=== PATIENT | female | born 1940 | race Two or more races ===

== ENCOUNTER 2017-05-07 17:45 | Emergency (ER) | payer MEDICARE, OTHER ==
[~2017-05-07] VITALS: Ht 152.4 cm; Wt 54.0 kg
--- NOTE | 2017-05-07 18:00 | NUR ---
AAOX3, C/O WEAK AND DIZZY X [address] LEONARD FOR ABNORMAL BLOOD COUNTS. RR IS EVEN AND UNLABORED WITH NAD NOTED. SKIN IS WARM AND DRY. AWAITING MD FOR EVAL.
[2017-05-07 18:27] LABS: BASOPHILS % (AUTO) 0.7 % (0.0-2.0); EOSINOPHILS # (AUTO) 0.1 /CMM (0.0-0.7); EOSINOPHILS % (AUTO) 1.9 % (0.0-6.0); HEMATOCRIT 28 % (33-45); HEMOGLOBIN 9.3 g/dL (11.5-14.8); LYMPHOCYTES # (AUTO) 2.8 /CMM (0.8-4.8); MEAN CORPUSCULAR HEMOGLOBIN 30 PG (26.0-33.0); MEAN CORPUSCULAR HGB CONC 33 g/dl (31.0-36.0); MEAN CORPUSCULAR VOLUME 92 fL (82-100); MONOCYTES # (AUTO) 0.5 /CMM (0.1-1.30); MONOCYTES % (AUTO) 9.5 % (2.0-12.0); NEUTROPHILS # (AUTO) 2.3 /CMM (1.8-8.9); NEUTROPHILS % (AUTO) 40.9 % (43.0-81.0); PLATELET COUNT (AUTO) 173 /CMM (150-450); RDW COEFFICIENT OF VARIATION 13.1 (11.5-15.0); RED BLOOD CELL COUNT(AUTO) 3.09 MIL/uL (4.0-5.2); WHITE BLOOD COUNT (AUTO) 5.7 K/uL (4.3-11.0)
[2017-05-07] MEDS ORDERED: IV NS 0.9% 1,000 ML BAG IV ONE (18:30)
[2017-05-07 18:37] LABS: CALCIUM, SERUM 8.5 mg/dL (8.5-10.1); CARBON DIOXIDE 22 mmol/L (21-32); CHLORIDE 107 mmol/L (98-107); CREATININE 3.1 mg/dL (0.6-1.3); GLUCOSE 248 mg/dL (74-106); POTASSIUM 5.1 mmol/L (3.5-5.1); SODIUM SERUM 138 mmol/L (136-145); UREA NITROGEN, BLOOD 59 mg/dL (7-18)
[2017-05-07 18:41] LABS: INR 0.97 (0.87-1.13); PROTHROMBIN TIME 10.1 SECS (9.5-12.7)
[2017-05-07 18:43] LABS: ALANINE AMINOTRANSFERASE 19 U/L (12-78); ALBUMIN 2.7 g/dL (3.4-5.0); ALKALINE PHOSPHATASE 59 U/L (46-116); ASPARTATE AMINOTRANSFERASE 18 U/L (15-37); BILIRUBIN,DIRECT 0.1 mg/dL (0.0-0.2); BILIRUBIN,TOTAL 0.2 mg/dL (0.2-1.0); LIPASE 199 U/L (73-393); TOTAL PROTEIN, SERUM 6.6 g/dL (6.4-8.2)
[2017-05-07 18:46] LABS: TROPONIN I 0.023 ng/mL (0.00-0.056)
[2017-05-07 19:04] LABS: APPEARANCE,URINE Cloudy (CLEAR); BILIRUBIN,URINE Negative (NEGATIVE); BLOOD, URINE Trace-intact Ery/uL (NEGATIVE); COLOR,URINE Yellow (YELLOW); KETONES,URINE Negative (NEGATIVE); LEUKOCYTE ESTERASE ,URINE Small (NEGATIVE); NITRITE, URINE Positive (NEGATIVE); PH,URINE 5.5 (5.0-8.0); PROTEIN,URINE Trace mg/dl (NEGATIVE); UGLUCOSE Negative (NEGATIVE); UROBILINOGEN,URINE 0.2 EU/dL (0.2)
[2017-05-07 19:21] LABS: BACTERIA,URINE 3+ /HPF (None Seen); SQUAMOUS EPITHELIAL CELL,UR Few /HPF (None Seen)
[2017-05-07] MEDS ORDERED: CEFTRIAXONE 1 G VIAL ONE (19:29)
[2017-05-07] MEDS ORDERED: CEFTRIAXONE 1 G in IV D5W 50 ML IV ONE (19:30)
--- NOTE | 2017-05-07 20:00 | NUR ---
IV removed. Catheter intact and site benign. Pressure and 4x4 applied to site. No bleeding noted. Patient discharged to home in stable condition. Written and verbal after care instructions given. Patient verbalizes understanding of instruction. Patient was able to walk with assistance, no further complaints.
[2017-05-07 20:01] VITALS: BP 111/53
== END 2017-05-07 20:01 | disposition home or self-care (01) ==
LOC: ER 17:48
DX: N30.00 Acute cystitis without hematuria (principal); R53.1 Weakness; N28.9 Disorder of kidney and ureter, unspecified; I10 Essential (primary) hypertension; R79.1 Abnormal coagulation profile
CPT/HCPCS: 36415; 71010; 80048; 80076; 81001; 83690; 84484; 85025; 85730; 87077; 87086; 87186; 96361; 96365; 99285; A4606; J0696; J7030; J7060; 81000-TC; Z7610

== ENCOUNTER 2017-05-12 07:11 | Inpatient (IN) | payer MEDICARE, MEDICAID ==
[2017-05-12] MEDS ORDERED: IV NS 0.9% 1,000 ML BAG IV ONE (07:30)
[2017-05-12] MEDS ORDERED: LEVO100T9 PO (09:16)
[2017-05-12] MEDS ORDERED: NIFE60TA69 PO (09:16)
[2017-05-12] MEDS ORDERED: VALS160T2 PO (09:16)
[2017-05-12] MEDS ORDERED: ASPI-991 PO (09:16)
[2017-05-12] MEDS ORDERED: CALC500T51 PO (09:16)
[2017-05-12] MEDS ORDERED: GLIM4TAB2 PO (09:16)
[2017-05-12] MEDS ORDERED: POTA10CA43 PO (09:16)
[2017-05-12] MEDS ORDERED: HYDR50TA3 PO (09:16)
[2017-05-12] MEDS ORDERED: NATE120T6 PO (09:16)
[2017-05-12] MEDS ORDERED: INSU100V7 SQ (09:16)
[2017-05-12] MEDS ORDERED: PROP20TA7 PO (09:16)
[2017-05-12] MEDS ORDERED: CEFTRIAXONE 1GM BAG (ER ONLY) 50 ML IV ONE ×2 (09:28→09:30)
[2017-05-12] MEDS ORDERED: POTA8TAB3 PO (09:37)
[2017-05-12] MEDS ORDERED: ONDANSETRON HCL/PF 4 MG/2 ML VIAL IV PRN (11:30)
[2017-05-12] MEDS ORDERED: CLONIDINE HCL 0.1 MG TABLET PO PRN (11:30)
[2017-05-12] MEDS ORDERED: ACETAMINOPHEN 325 MG TABLET PO PRN (11:30)
[2017-05-12] MEDS ORDERED: DEXTROSE 50%-WATER 50 ML DISP.SYRIN IV PRN ×2 (11:30→18:00)
[2017-05-12] MEDS: LEVOTHYROXINE SODIUM 100 MCG TABLET PO SCH (12:26)
[2017-05-12] MEDS: ASPIRIN EC 81 MG TABLET.DR PO SCH (12:26)
[2017-05-12] MEDS: NIFEdipine XL 60 MG TAB PO SCH (12:26)
[2017-05-12] MEDS: ENOXAPARIN SODIUM 30 MG/0.3 ML DISP.SYRIN SQ SCH (12:27)
[2017-05-12] MEDS: PROPRANOLOL HCL 10 MG TABLET PO SCH ×2 (12:29→17:00)
[2017-05-12] MEDS: CALCIUM CARBONATE (1250) 500 MG TABLET PO SCH ×2 (12:29→17:50)
[2017-05-12] MEDS: NATEGLINIDE 60 MG TABLET PO SCH ×3 (12:30→17:50)
[2017-05-12] MEDS: IV D5/ 0.9% NACL 1,000 ML IV PRN (12:32)
[2017-05-12] MEDS: BLOOD SUGAR DIAGNOSTIC 1 EACH STRIP IN SCH ×4 (12:43→21:07)
[2017-05-12] MEDS: INSULIN REGULAR, HUMAN 100 UNIT/ML 3 ML VIAL SQ PRN ×2 (13:55→15:09)
[2017-05-12] MEDS ORDERED: INSULIN REGULAR, HUMAN 100 UNIT/ML 3 ML VIAL SQ PRN (18:00)
[2017-05-12] MEDS: INSULIN DETEMIR 100 UNIT/ML CARTRIDGE SQ SCH (21:08)
[2017-05-13] MEDS: IV D5/ 0.9% NACL 1,000 ML IV PRN (04:24)
[2017-05-13] MEDS: BLOOD SUGAR DIAGNOSTIC 1 EACH STRIP IN SCH ×4 (06:36→21:32)
[2017-05-13] MEDS: INSULIN REGULAR, HUMAN 100 UNIT/ML 3 ML VIAL SQ PRN ×2 (06:40→12:33)
[2017-05-13] MEDS ORDERED: DEXTROSE 50%-WATER 50 ML DISP.SYRIN IV PRN (07:30)
[2017-05-13] MEDS: CEFTRIAXONE 1 G in IV D5W 50 ML IV SCH (08:18)
[2017-05-13] MEDS: CALCIUM CARBONATE (1250) 500 MG TABLET PO SCH ×2 (08:19→17:15)
[2017-05-13] MEDS: ENOXAPARIN SODIUM 30 MG/0.3 ML DISP.SYRIN SQ SCH (08:19)
[2017-05-13] MEDS: LEVOTHYROXINE SODIUM 100 MCG TABLET PO SCH (08:20)
[2017-05-13] MEDS: NATEGLINIDE 60 MG TABLET PO SCH ×3 (08:20→17:16)
[2017-05-13] MEDS: ASPIRIN EC 81 MG TABLET.DR PO SCH (08:20)
[2017-05-13] MEDS: PROPRANOLOL HCL 10 MG TABLET PO SCH ×3 (08:26→17:15)
[2017-05-13] MEDS: VALSARTAN 80 MG TABLET PO SCH ×2 (08:26→17:13)
[2017-05-13] MEDS: NIFEdipine XL 60 MG TAB PO SCH (08:27)
[2017-05-13] MEDS: PANTOPRAZOLE 40 MG TABLET.DR PO SCH (08:28)
[2017-05-13] MEDS: INSULIN DETEMIR 100 UNIT/ML CARTRIDGE SQ SCH (21:39)
[2017-05-14] MEDS: BLOOD SUGAR DIAGNOSTIC 1 EACH STRIP IN SCH ×4 (06:29→21:35)
[2017-05-14] MEDS: INSULIN REGULAR, HUMAN 100 UNIT/ML 3 ML VIAL SQ PRN ×4 (06:32→21:41)
[2017-05-14] MEDS: PANTOPRAZOLE 40 MG TABLET.DR PO SCH (06:34)
[2017-05-14] MEDS: NIFEdipine XL 60 MG TAB PO SCH (09:18)
[2017-05-14] MEDS: ASPIRIN EC 81 MG TABLET.DR PO SCH (09:18)
[2017-05-14] MEDS: LEVOTHYROXINE SODIUM 100 MCG TABLET PO SCH (09:18)
[2017-05-14] MEDS: CALCIUM CARBONATE (1250) 500 MG TABLET PO SCH ×2 (09:18→17:55)
[2017-05-14] MEDS: VALSARTAN 80 MG TABLET PO SCH ×2 (09:21→17:00)
[2017-05-14] MEDS: PROPRANOLOL HCL 10 MG TABLET PO SCH ×3 (09:24→18:01)
[2017-05-14] MEDS: ENOXAPARIN SODIUM 30 MG/0.3 ML DISP.SYRIN SQ SCH (09:26)
[2017-05-14] MEDS: CEFTRIAXONE 1 G in IV D5W 50 ML IV SCH (09:37)
[2017-05-14] MEDS: NATEGLINIDE 60 MG TABLET PO SCH ×3 (09:37→17:56)
[2017-05-14] MEDS: INSULIN DETEMIR 100 UNIT/ML CARTRIDGE SQ SCH (21:36)
[2017-05-15] MEDS: BLOOD SUGAR DIAGNOSTIC 1 EACH STRIP IN SCH ×3 (05:48→16:58)
[2017-05-15] MEDS: INSULIN REGULAR, HUMAN 100 UNIT/ML 3 ML VIAL SQ PRN ×3 (05:51→17:07)
[2017-05-15] MEDS: ENOXAPARIN SODIUM 30 MG/0.3 ML DISP.SYRIN SQ SCH (08:13)
[2017-05-15] MEDS: LEVOTHYROXINE SODIUM 100 MCG TABLET PO SCH (08:14)
[2017-05-15] MEDS: CALCIUM CARBONATE (1250) 500 MG TABLET PO SCH ×2 (08:14→17:02)
[2017-05-15] MEDS: PANTOPRAZOLE 40 MG TABLET.DR PO SCH (08:14)
[2017-05-15] MEDS: ASPIRIN EC 81 MG TABLET.DR PO SCH (08:14)
[2017-05-15] MEDS: NATEGLINIDE 60 MG TABLET PO SCH ×3 (08:15→17:04)
[2017-05-15] MEDS: NIFEdipine XL 60 MG TAB PO SCH (08:20)
[2017-05-15] MEDS: VALSARTAN 80 MG TABLET PO SCH ×2 (08:20→17:00)
[2017-05-15] MEDS: PROPRANOLOL HCL 10 MG TABLET PO SCH ×3 (08:21→17:00)
[2017-05-15] MEDS: CEFTRIAXONE 1 G in IV D5W 50 ML IV SCH (11:55)
== END 2017-05-15 20:20 | DRG 638 ==
DX: E11.649 Type 2 diabetes mellitus with hypoglycemia without coma (principal); N39.0 Urinary tract infection, site not specified; N17.0 Acute kidney failure with tubular necrosis; F03.90 Unspecified dementia, unspecified severity, without behavioral disturbance, psychotic disturbance, mood disturbance, and anxiety; E11.22 Type 2 diabetes mellitus with diabetic chronic kidney disease; E11.65 Type 2 diabetes mellitus with hyperglycemia; I12.9 Hypertensive chronic kidney disease with stage 1 through stage 4 chronic kidney disease, or unspecified chronic kidney disease; Z79.4 Long term (current) use of insulin; Z79.84 Long term (current) use of oral hypoglycemic drugs; Z79.82 Long term (current) use of aspirin; Y92.129 Unspecified place in nursing home as the place of occurrence of the external cause; T38.3X5A Adverse effect of insulin and oral hypoglycemic [antidiabetic] drugs, initial encounter; N18.3 Chronic kidney disease, stage 3 (moderate); Z79.899 Other long term (current) drug therapy

== ENCOUNTER 2017-06-04 22:25 | Inpatient (IN) | payer MEDICARE, MEDICAID ==
[~2017-06-04] VITALS: Ht 160 cm; Wt 54.0 kg
[~2017-06-04 22:25] MED LIST: ASPI-991 PO; CALC500T51 PO; GLIM4TAB2 PO; HYDR50TA3 PO; INSU100V7 SQ; LEVO100T9 PO; NATE120T6 PO; NIFE60TA69 PO; POTA8TAB3 PO; PROP20TA7 PO; VALS160T2 PO
--- NOTE | 2017-06-04 22:37 | NUR ---
ADRIENNE ESQUIVEL FROM [facility]; LOW BG; 56, NURSES ADMIN 1MG GLUCAGON PER EMS, PT IS BACK TO BASELINE BS ON THE FIELD 88. PT AO TO NAME NOTED WITH CONFUSION. HX DEMENTIA. RR EVEN AND UNLABORED. NO SOB NOTED. NAD NOTED. PT GOWNED AND PLACED ON MONITOR WAITING FOR MD COTTRELL.
--- NOTE | 2017-06-04 23:02 | NUR ---
URINE COLLECTED. CALLED LAB FOR BRICK YARD HAND.
[2017-06-04 23:05] LABS: BASOPHILS % (AUTO) 0.4 % (0.0-2.0); EOSINOPHILS # (AUTO) 0.1 /CMM (0.0-0.7); EOSINOPHILS % (AUTO) 0.6 % (0.0-6.0); HEMATOCRIT 37 % (33-45); HEMOGLOBIN 11.9 g/dL (11.5-14.8); LYMPHOCYTES # (AUTO) 2.2 /CMM (0.8-4.8); LYMPHOCYTES % (AUTO) 21.6 % (20.0-44.0); MEAN CORPUSCULAR HEMOGLOBIN 29 PG (26.0-33.0); MEAN CORPUSCULAR HGB CONC 32 g/dl (31.0-36.0); MEAN CORPUSCULAR VOLUME 91 fL (82-100); MONOCYTES # (AUTO) 0.7 /CMM (0.1-1.30); MONOCYTES % (AUTO) 6.4 % (2.0-12.0); NEUTROPHILS # (AUTO) 7.2 /CMM (1.8-8.9); PLATELET COUNT (AUTO) 358 /CMM (150-450); RDW COEFFICIENT OF VARIATION 13.5 (11.5-15.0); RED BLOOD CELL COUNT(AUTO) 4.06 MIL/uL (4.0-5.2); WHITE BLOOD COUNT (AUTO) 10.2 K/uL (4.3-11.0)
[2017-06-04 23:17] LABS: CALCIUM, SERUM 9.7 mg/dL (8.5-10.1); CARBON DIOXIDE 23 mmol/L (21-32); CHLORIDE 102 mmol/L (98-107); CREATININE 2.7 mg/dL (0.6-1.3); GLUCOSE 151 mg/dL (74-106); POTASSIUM 5.2 mmol/L (3.5-5.1); SODIUM SERUM 135 mmol/L (136-145); UREA NITROGEN, BLOOD 53 mg/dL (7-18)
[2017-06-04 23:20] LABS: INR 0.9 (0.87-1.13); PROTHROMBIN TIME 9.4 SECS (9.5-12.7)
[2017-06-04 23:25] LABS: ALANINE AMINOTRANSFERASE 23 U/L (12-78); ALBUMIN 3.3 g/dL (3.4-5.0); ALKALINE PHOSPHATASE 93 U/L (46-116); ASPARTATE AMINOTRANSFERASE 16 U/L (15-37); BILIRUBIN,DIRECT 0.1 mg/dL (0.0-0.2); BILIRUBIN,TOTAL 0.3 mg/dL (0.2-1.0); TOTAL PROTEIN, SERUM 9.5 g/dL (6.4-8.2); TROPONIN I < 0.017 ng/mL (0.00-0.056)
--- NOTE | 2017-06-04 23:38 | NUR ---
Sherif kimball in [facility] - 06/04/17 at 2341 by SHARYN PT TO RADIOLOGY FOR CT.
[2017-06-04 23:47] LABS: APPEARANCE,URINE CLEAR (CLEAR); BILIRUBIN,URINE NEGATIVE (NEGATIVE); BLOOD, URINE NEGATIVE Ery/uL (NEGATIVE); COLOR,URINE YELLOW (YELLOW); KETONES,URINE NEGATIVE (NEGATIVE); LEUKOCYTE ESTERASE ,URINE NEGATIVE (NEGATIVE); NITRITE, URINE NEGATIVE (NEGATIVE); PROTEIN,URINE TRACE mg/dl (NEGATIVE); UGLUCOSE NEGATIVE (NEGATIVE); UROBILINOGEN,URINE 0.2 EU/dL (0.2)
[2017-06-04 23:54] LABS: BACTERIA,URINE None seen /HPF (None Seen); RBC,URINE NONE SEEN /HPF (0-2); SQUAMOUS EPITHELIAL CELL,UR Few /HPF (None Seen)
[2017-06-05] VITALS (7 sets, daily range): BP systolic 106–142; BP diastolic 52–91
[2017-06-05] MEDS ORDERED: SODIUM POLYSTYRENE SULFONATE 15 G/60 ML BOTTLE PO ONE
--- NOTE | 2017-06-05 00:09 | NUR ---
DR. HORACIO VAN
[2017-06-05] MEDS ORDERED: SODIUM POLYSTYRENE SULFONATE 15 G/60 ML BOTTLE ONE (00:14)
[2017-06-05] MEDS ORDERED: PANT40TA4 PO (00:16)
[2017-06-05] MEDS ORDERED: CLON0.1T PO (00:16)
--- NOTE | 2017-06-05 00:40 | NUR ---
DR. ROCK SPOKE TO DR. LEONARD REGARDING ADMISSION.
--- NOTE | 2017-06-05 00:42 | NUR ---
PT BP 98/[address] ROCK MADE AWARE. VERBAL ORDERS TO GIVE IV NS 500CC BOLUS NOW. PT MEDICATED
--- NOTE | 2017-06-05 00:55 | NUR ---
PT ASSIGNED 324-2
[2017-06-05] MEDS ORDERED: IV NS 0.9% 500 ML BAG IV ONE (01:00)
--- NOTE | 2017-06-05 01:00 | NUR ---
REPORT GIVEN TO AMADOR JI FOR TELE BED 324-2
--- NOTE | 2017-06-05 01:15 | NUR ---
PT TRANSFERED TO [facility] BED 324-2 VIA [facility] PER ACLS PROTOCOL.
--- NOTE | 2017-06-05 01:20 | NUR ---
RN NOTES: -0100 VERBAL ENDORSEMENT RECEIVED FROM JOAQUÍN(ER/RN),PATIENT WAS BROUGHT TO ER FROM [facility] DUE TO LOW BLOOD SUGAR=56 AND ALTERED LEVEL OF CONSCIOUSNESS,SHE RECEIVED GLUCAGON FROM SNF,RBS IN SJ=333,K-5.2, KAYEXALATE GIVEN AND BOLUS OF N/S 500CC,CXR-NEGATIVE,MRSA SWAB DONE,URINE C/S PENDING,EKG-SR RBBB.ALBARRAN CATH WAS INSERTED F16/10ML,PATIENT TEMP-95,WARM COMPRESS DONE FROM ER. -0120 NEW ADMISSION FROM ER, ACCOMPANIED BY RN, ON WIDE AREA NETWORK SYSTEMS ADMINISTRATOR,STARTED ON TELE MONITORING-SR 1ST DEGREE AV BLOCK RATE=75,ALERT AND COHERENT X1 WITH PERIODS OF FORGETFULNESS AND CONFUSION,ALBARRAN CATH ON SITE DRAINING INTO 100CC LEVEL OF YELLOWISH COLORED URINE,IV CANNULA RIGHT HAND G#24,RIGHT AC G#20,KEPT WARMTH, ADDITIONAL WARM BLANKET PROVIDED, TEMP-97.5, PATIENT IS GIBRALTARIAN SPEAKING WITH LITTLE TURKMEN, SHE LOOKS CONFUSE,ORIENT TO UNIT AND STAFF,FALL, SAFETY AND ASPIRATION PRECAUTION OBSERVED,BED LOW AND LOCKED, SIDE RAILSX2 UP, CALL LIGHT WITHIN EASY REACH, FOR BLOOD SUGAR MONITOR.BODY ASSESSMENT DONE,EDEMA ON BLE(+),KEPT MONITORED FOR SIGN OF HYPER/HYPOGLYCEMIA.ON CLOSE WATCH.
[2017-06-05] MEDS ORDERED: ACETAMINOPHEN 325 MG TABLET PO PRN ×2 (01:30→10:00)
[2017-06-05] MEDS ORDERED: IV D5/ 0.9% NACL 1,000 ML IV SCH (01:30)
[2017-06-05] MEDS ORDERED: ONDANSETRON HCL/PF 4 MG/2 ML VIAL IV PRN (01:30)
--- NOTE | 2017-06-05 02:30 | NUR ---
RN NOTES: -IVF OF D5NS AT 100CC/HR STARTED,IV LINE RIGHT AC G#20 INTACT AND PATENT. -PATIENT KEPT WARM,NO SHEIVERING, BLOOD SUGAR FNXWN=549,WILL CONTINUE TO MONITOR FOR SIGN OF HYPER AND HYPOGLYCEMIA.
--- NOTE | 2017-06-05 04:10 | NUR ---
RN NOTES: PATIENT ABLE TO AMBULATE WITH UTILITY PLANT OPERATIVE ASSISTANCE GOING TO THE BATHROOM,BLOOD SUGAR CHECKED-215, IVF CONTINUED,LATEST V/S BP-128/52 WA-78 T-97.8,ABLE TO MAINTAIN TEMPERATURE WITH IN NORMAL RANGE.CALL LIGHT WITH IN EASY REACH.
[2017-06-05] MEDS ORDERED: DEXTROSE 50%-WATER 50 ML DISP.SYRIN IV PRN (06:00)
--- NOTE | 2017-06-05 06:40 | NUR ---
RN NOTES: AWAKE,NO PAIN OR DISCOMFORT, ABLE TO VERBALIZE NEED, SR RATE-RR WITH 1ST DEGREE AV BLOCK, KEPT ON CLOSE WATCH, FALL AND SAFETY PRECAUTION OBSERVE,CALL LIGHT WITHIN EASY REACH.ENDORSED FOR CONTINUITY OF CARE.
--- NOTE | 2017-06-05 07:25 | NUR ---
TELE-RN PT IS IN BED, AWAKE AND ALERT. PT ON RA, RESPIRATIONS ARE EVEN AND UNLABORED. IV ON RIGHT HAND AND RAC INTACT AND PATENT, RAC RUNNING D5NS AT 70ML/HR. SAFETY MEASURES ARE IN PLACE, CALL LIGHT IS IN REACH. WILL CONTINUE TO MONITOR.
[2017-06-05 07:28] LABS: BASOPHILS % (AUTO) 0.3 % (0.0-2.0); EOSINOPHILS % (AUTO) 0.4 % (0.0-6.0); HEMATOCRIT 30 % (33-45); HEMOGLOBIN 9.9 g/dL (11.5-14.8); LYMPHOCYTES # (AUTO) 2.5 /CMM (0.8-4.8); LYMPHOCYTES % (AUTO) 27.2 % (20.0-44.0); MEAN CORPUSCULAR HEMOGLOBIN 31 PG (26.0-33.0); MEAN CORPUSCULAR HGB CONC 33 g/dl (31.0-36.0); MEAN CORPUSCULAR VOLUME 92 fL (82-100); MONOCYTES # (AUTO) 0.8 /CMM (0.1-1.30); MONOCYTES % (AUTO) 8.3 % (2.0-12.0); NEUTROPHILS # (AUTO) 5.8 /CMM (1.8-8.9); NEUTROPHILS % (AUTO) 63.8 % (43.0-81.0); PLATELET COUNT (AUTO) 305 /CMM (150-450); RDW COEFFICIENT OF VARIATION 13.6 (11.5-15.0); RED BLOOD CELL COUNT(AUTO) 3.23 MIL/uL (4.0-5.2); WHITE BLOOD COUNT (AUTO) 9.1 K/uL (4.3-11.0)
[2017-06-05] MEDS: BLOOD SUGAR DIAGNOSTIC 1 EACH STRIP IN SCH ×4 (07:30→22:38)
[2017-06-05 07:53] LABS: CALCIUM, SERUM 8.7 mg/dL (8.5-10.1); CARBON DIOXIDE 22 mmol/L (21-32); CHLORIDE 104 mmol/L (98-107); CREATININE 2.5 mg/dL (0.6-1.3); GLUCOSE 207 mg/dL (74-106); MAGNESIUM 1.9 mg/dL (1.8-2.4); POTASSIUM 4.3 mmol/L (3.5-5.1); SODIUM SERUM 138 mmol/L (136-145); UREA NITROGEN, BLOOD 50 mg/dL (7-18)
[2017-06-05] MEDS ORDERED: MAGN400O6 PO (08:36)
[2017-06-05] MEDS ORDERED: ACET-868 PO (08:36)
[2017-06-05] MEDS ORDERED: CHOL100044 PO (08:36)
[2017-06-05] MEDS ORDERED: LEVO50TA8 PO (08:36)
[2017-06-05] MEDS ORDERED: BLOO-668 IN (08:36)
[2017-06-05] MEDS ORDERED: DOCU-25 PO (08:36)
[2017-06-05] MEDS ORDERED: NA P133E RC (08:36)
[2017-06-05] MEDS ORDERED: PRAV20TA PO (08:36)
[2017-06-05] MEDS ORDERED: SITA50TA PO (08:36)
[2017-06-05] MEDS ORDERED: INSU100I4 SQ ×2 (08:36)
[2017-06-05] MEDS ORDERED: BISA10SU8 RC (08:36)
--- NOTE | 2017-06-05 09:56 | NUR ---
WOUND CARE CONSULT: PT PRESENTS WITH INTACT SKIN AND SOME STAINING OF SACRAL/BUTTOCK SKIN. PT ABLE TO TURN AND REPOSITION IN BED. ALBARRAN CATH IN USE. DISCUSSED SKIN PROTECTION WITH NURSING STAFF. PT AMBULATORY WITH NURSING STAFF PER NURSE. WILL SEE PRN. KENYON IN AGREEMENT WITH PLAN OF CARE.
[2017-06-05] MEDS ORDERED: CLONIDINE HCL 0.1 MG TABLET PO PRN (10:00)
[2017-06-05] MEDS: PANTOPRAZOLE 40 MG TABLET.DR PO SCH (10:44)
[2017-06-05] MEDS: ASPIRIN EC 81 MG TABLET.DR PO SCH (10:44)
[2017-06-05] MEDS: NIFEdipine XL 60 MG TAB PO SCH (10:45)
[2017-06-05] MEDS: VALSARTAN 80 MG TABLET PO SCH ×2 (10:45→22:38)
[2017-06-05] MEDS: INSULIN REGULAR, HUMAN 100 UNIT/ML 3 ML VIAL SQ PRN ×3 (11:50→22:40)
[2017-06-05] MEDS: PROPRANOLOL HCL 10 MG TABLET PO SCH ×2 (13:00→17:10)
--- NOTE | 2017-06-05 18:36 | NUR ---
RN NOTES PT IS IN BED, RESTING COMFORTABLY. PT ON RA, RESPIRATIONS ARE EVEN AND UNLABORED. IV ON R HAND INTACT, RAC INTACT, RUNNING D5NS @70ML/HR. ALBARRAN CATHETER INTACT, OUTPUT 800ML. PT WAS ABLE TO AMBULATE TO BR WITH ASSISTANCE, BM X1. ALL MEDS WERE GIVEN ORDERED. SKIN CARE WAS PROVIDED. SAFETY MEASURES ARE IN PLACE, CALL LIGHT IS IN REACH. WILL ENDORSE TO MACHINE LEARNING INTERN RN FOR CONTINUITY OF CARE.
--- NOTE | 2017-06-05 19:30 | NUR ---
MS/RN RECEIVE PATIENT AWAKE, ALERT, ORIENTED TO SELF, NO C/O, NO DISTRESS NOTED, CALL LIGHT IN REACH. FALL PRECAUTION. WILL MONITOR.
[2017-06-05] MEDS ORDERED: INSULIN DETEMIR 100 UNIT/ML CARTRIDGE SQ SCH (22:00)
--- NOTE | 2017-06-05 22:47 | NUR ---
MS/RN BLOOD SUGAR 151, REGULAR INSULIN GIVEN PER SLIDING SCALE, LANTUS 15 UNITS WAS ALSO GIVEN ORDERED. SNACK GIVEN. WILL MONITOR.
--- NOTE | 2017-06-06 02:12 | NUR ---
MS/RN PATIENT IS SLEEPING AT THIS TIME, AROUSABLE, APPEAR COMFORTABLE, NO SIGNS OF DISTRESS NOTED, CALL LIGHT IN REACH. WILL CONTINUE TO MONITOR.
--- NOTE | 2017-06-06 06:40 | NUR ---
MS/RN BLOOD SUGAR BY BEDSIDE ACCU CHECK 79, APPLE JUICE GIVEN. NO CHANGE IN CONDITION. ALL NEEDS ATTENDED. WILL CONTINUE TO MONITOR.
--- NOTE | 2017-06-06 07:33 | NUR ---
MS RN OPENING NOTE RECEIVED REPORT ON THE PATIENT. PATIENT IS RESTING IN BED WITH THE EYES CLOSED. RESPONSIVE TO NAME, EASILY AROUSABLE. A/0 X3, PERUVIAN SPEAKING. BED IS LOCKED IN THE LOWEST POSITION, SIDE RAILS UP X 3, BED ALARM ON, PATIENT IN HIGH CROW'S POSITION. DENIES PAIN/ISCOMFORT AT THIS TIME. ALL NEEDS ATTENDED TO. CALL LIGHT WITHIN REACH. SN TOLD THE PATIENT TO CALL FOR HELP WHEN NEEDED. PATIENT VERBALIZED UNDERSTANDING. WILL CONTINUE TO MONITOR.
[2017-06-06] MEDS: BLOOD SUGAR DIAGNOSTIC 1 EACH STRIP IN SCH ×3 (07:34→17:34)
[2017-06-06 08:00] VITALS: BP 133/74
[2017-06-06] MEDS: PANTOPRAZOLE 40 MG TABLET.DR PO SCH (08:22)
[2017-06-06] MEDS: ASPIRIN EC 81 MG TABLET.DR PO SCH (08:22)
[2017-06-06] MEDS: NIFEdipine XL 60 MG TAB PO SCH (08:23)
[2017-06-06] MEDS: VALSARTAN 80 MG TABLET PO SCH (08:24)
[2017-06-06] MEDS: PROPRANOLOL HCL 10 MG TABLET PO SCH ×3 (08:26→17:33)
[2017-06-06] MEDS: INSULIN REGULAR, HUMAN 100 UNIT/ML 3 ML VIAL SQ PRN ×2 (12:56→17:41)
[2017-06-06 16:00] VITALS: BP 146/66
[2017-06-06 17:33] VITALS: BP 146/66
--- NOTE | 2017-06-06 18:00 | NUR ---
MS RN NOTE REMOVED ALBARRAN CATETHER. PATIENT TOLERATED THE PROCEDURE WELL. EDUCATED THE PATIENT TO CALL THE NURSE ONCE HAS AN URGE TO URINATE. WILL CONTINUE TO MONITOR.
--- NOTE | 2017-06-06 18:53 | NUR ---
MS RN NOTE PATIENT URINATED. DENIES BURNING SECTION/HESITANCY. CLEAR, STRAW COLOR URINE OBSERVED. PATIENT ASKED TO BE PLACED IN A DIAPER.
--- NOTE | 2017-06-06 18:59 | NUR ---
MS RN CLOSING NOTE PATIENT IS RESTING IN BED COMFORTABLY. BED IS LOCKED IN THE LOWEST POSITION, SIDE RAILS UP X 3, BED ALARM ON. CALL LIGHT WITHIN REACH. ALL NEEDS ARE ATTENDED TO ALBARRAN CATETHER REMOVED. PASSED VOID TRIAL. DENIES PAIN/DISCOMFORT. DISCHARGE EDUCATION PROVIDE. DISCHARGE PAPERWORK IS READY. WILL INDORSE TO THE TRANSMISSION ENGINEER FOR KEY.
--- NOTE | 2017-06-06 19:10 | NUR ---
MS RN NOTE SPOKE WITH THE SON RAFIQ. STATED WILL BE HERE IN 30-40 MINUTES TO TRADE MARK EXAMINER THE PATIENT
--- NOTE | 2017-06-06 19:57 | NUR ---
RN NOTES PATIENT IS ALERT AND ORIENTED X2, NO SOB, NO RESPIRATORY DISTRESS,TOLERATING ROOM AIR, FOR DISCHARGE HOME, PICKED UP BY SON RAMSES, EDUCATED ON S/S OF HYPOGLYCEMIA AND MEDICATION COUNSELING AND HOW TO PERFORM ACCUCHECK AND BLOOD PRESSURE, SON SIGNED DISCHARGE PAPERS, REMOVED IV LINE, NO BLEEDING, SECURED WITH DRESSING. BELONGINGS GIVEN TO SON, DISCHARGED VIA PRIVATE CAR. V/S 121/55 HR 77 R 20 AND SPO2 AT ROOM AIR 98%, NO COMPLAIN OF PAIN.
== END 2017-06-06 19:50 | disposition home or self-care (01) | DRG 639 ==
LOC: ER 22:28 → TELE 06-05 00:59 → MED 06-05 10:12
PROVIDERS: ADMIT Legal Medicine; ATTEND Legal Medicine
DX: E11.649 Type 2 diabetes mellitus with hypoglycemia without coma (principal); E86.0 Dehydration; E11.22 Type 2 diabetes mellitus with diabetic chronic kidney disease; F03.90 Unspecified dementia, unspecified severity, without behavioral disturbance, psychotic disturbance, mood disturbance, and anxiety; N18.3 Chronic kidney disease, stage 3 (moderate); I12.9 Hypertensive chronic kidney disease with stage 1 through stage 4 chronic kidney disease, or unspecified chronic kidney disease; E03.9 Hypothyroidism, unspecified; K21.9 Gastro-esophageal reflux disease without esophagitis; Z79.899 Other long term (current) drug therapy; Z79.84 Long term (current) use of oral hypoglycemic drugs; Z79.82 Long term (current) use of aspirin
CPT/HCPCS: 36415; 71010-TC; 80048-TC; 80076-TC; 81000-TC; 82962-TC; 83605-TC; 83735-TC; 84484-TC; 85025-TC; 85730-TC; 87040-TC; 87081-TC; 87086-TC; 87186-TC; A4606; J1815; J7040; J7042; Z7610

== ENCOUNTER 2017-07-13 07:04 | Inpatient (IN) | payer MEDICARE, MEDICAID ==
[~2017-07-13] VITALS: Ht 152.4 cm; Wt 59.4 kg
[~2017-07-13 07:04] MED LIST changes: +ACET-868 PO; +BISA10SU8 RC; +BLOO-668 IN; -CALC500T51 PO; +CHOL100044 PO; +CLON0.1T PO; +DOCU-25 PO; -GLIM4TAB2 PO; -HYDR50TA3 PO; +INSU100I4 SQ; -LEVO100T9 PO; +LEVO50TA8 PO; +MAGN400O6 PO; +NA P133E RC; -NATE120T6 PO; +PANT40TA4 PO; -POTA8TAB3 PO; +PRAV20TA PO; +SITA50TA PO
[2017-07-13] MEDS ORDERED: DEXTROSE 50%-WATER 50 ML DISP.SYRIN ONE (07:17)
--- NOTE | 2017-07-13 07:29 | NUR ---
CASING BUILDER AT BEDSIDE
[2017-07-13] MEDS ORDERED: IV D5/0.45 NACL 1,000 ML IV ONE (07:30)
[2017-07-13 07:34] LABS: BASOPHILS # (AUTO) 0.1 /CMM (0.0-0.2); BASOPHILS % (AUTO) 0.6 % (0.0-2.0); EOSINOPHILS # (AUTO) 0.3 /CMM (0.0-0.7); EOSINOPHILS % (AUTO) 3.9 % (0.0-6.0); HEMATOCRIT 32 % (33-45); HEMOGLOBIN 10.6 g/dL (11.5-14.8); LYMPHOCYTES # (AUTO) 3.2 /CMM (0.8-4.8); LYMPHOCYTES % (AUTO) 40.4 % (20.0-44.0); MEAN CORPUSCULAR HEMOGLOBIN 30 PG (26.0-33.0); MEAN CORPUSCULAR HGB CONC 33 g/dl (31.0-36.0); MEAN CORPUSCULAR VOLUME 91 fL (82-100); MONOCYTES # (AUTO) 0.8 /CMM (0.1-1.30); MONOCYTES % (AUTO) 10.1 % (2.0-12.0); NEUTROPHILS # (AUTO) 3.6 /CMM (1.8-8.9); PLATELET COUNT (AUTO) 246 /CMM (150-450); RDW COEFFICIENT OF VARIATION 15.8 (11.5-15.0); RED BLOOD CELL COUNT(AUTO) 3.56 MIL/uL (4.0-5.2)
[2017-07-13 07:50] LABS: APPEARANCE,URINE SL CLOUDY (CLEAR); BILIRUBIN,URINE NEGATIVE (NEGATIVE); BLOOD, URINE NEGATIVE Ery/uL (NEGATIVE); COLOR,URINE YELLOW (YELLOW); KETONES,URINE NEGATIVE (NEGATIVE); LEUKOCYTE ESTERASE ,URINE 1+ (NEGATIVE); NITRITE, URINE POSITIVE (NEGATIVE); PROTEIN,URINE NEGATIVE (NEGATIVE); UGLUCOSE NEGATIVE (NEGATIVE); UROBILINOGEN,URINE 0.2 EU/dL (0.2)
--- NOTE | 2017-07-13 07:50 | NUR ---
KAREN DHALIWAL POSSIBLE BLOOD SUGAR. PATIENT RECEIVED AAO3. APPEARS IN NO APPARENT DISTRESS. RESPIRATION EVEN AND UNLABORED. SKIN IS WARM TO TOUCH AND NON DIAPHORETIC,.AFEBRILE/ VSS. PENDING MD COTTRELL
[2017-07-13 07:53] LABS: TROPONIN I < 0.017 ng/mL (0.00-0.056)
[2017-07-13 07:57] LABS: BACTERIA,URINE Moderate /HPF (None Seen); RBC,URINE 0-2 /HPF (0-2); SQUAMOUS EPITHELIAL CELL,UR Few /HPF (None Seen)
[2017-07-13] MEDS ORDERED: CEFTRIAXONE 1GM BAG (ER ONLY) 1 GM/50 ML PIGGYBACK IV ONE (08:00)
[2017-07-13 08:01] LABS: ALANINE AMINOTRANSFERASE 26 U/L (12-78); ALBUMIN 3.2 g/dL (3.4-5.0); ALKALINE PHOSPHATASE 99 U/L (46-116); ASPARTATE AMINOTRANSFERASE 20 U/L (15-37); BILIRUBIN,DIRECT 0.1 mg/dL (0.0-0.2); BILIRUBIN,TOTAL 0.3 mg/dL (0.2-1.0); CALCIUM, SERUM 9.1 mg/dL (8.5-10.1); CARBON DIOXIDE 22 mmol/L (21-32); CHLORIDE 110 mmol/L (98-107); CREATININE 2.5 mg/dL (0.6-1.3); LIPASE 176 U/L (73-393); POTASSIUM 4.9 mmol/L (3.5-5.1); SODIUM SERUM 142 mmol/L (136-145); TOTAL PROTEIN, SERUM 8.1 g/dL (6.4-8.2); UREA NITROGEN, BLOOD 46 mg/dL (7-18)
[2017-07-13 08:03] LABS: GLUCOSE 49 mg/dL (74-106)
[2017-07-13] MEDS ORDERED: CEFTRIAXONE 1GM BAG (ER ONLY) 50 ML IV ONE (08:03)
--- NOTE | 2017-07-13 08:24 | NUR ---
DR. LEONARD AT BEDSIDE
--- NOTE | 2017-07-13 08:38 | NUR ---
REPORT GIVEN TO AMADOR HUMPHREYS FOR KEY
--- NOTE | 2017-07-13 08:38 | NUR ---
PATIENT TRASPORTED TO MS. VSS
[2017-07-13] MEDS ORDERED: LEVO100T9 PO (08:41)
[2017-07-13] MEDS ORDERED: CALC500T51 PO (08:41)
[2017-07-13 09:00] VITALS: BP 118/58
--- NOTE | 2017-07-13 09:00 | NUR ---
RN Opening notes Received pt frome ER via wendy, assisted to bed, awake,alert and verbally responsive, mozambican speakin, on room air,no SOB noted. Denies any pain or discomfort at this time. Dr Arriola with admitting orders will carry out as ordered and continue to monitor. Call light within reach. IV site LAC patent, intact, no redness, no infiltration noted.Will continue to monitor accordingly, Safety measures in place.
[2017-07-13] MEDS ORDERED: DEXTROSE 50%-WATER 50 ML DISP.SYRIN IV PRN ×2 (09:30→10:30)
--- NOTE | 2017-07-13 09:39 | NUR ---
RN NOTES RECEIVED ADMITTING ORDERS, SENT TO PHARMACY CONFIRMED RECEIPT OF ORDERS WITH YVETTE PHARMACIST, WILL CARRY OUT ORDERS.
[2017-07-13] MEDS: PANTOPRAZOLE 40 MG TABLET.DR PO SCH (09:51)
[2017-07-13 10:00] VITALS: BP 118/58
[2017-07-13] MEDS ORDERED: ACETAMINOPHEN 325 MG TABLET PO PRN (10:00)
[2017-07-13] MEDS ORDERED: INSULIN ASPART HUMALOG/NOVOLOG 100 UNIT/ML CARTRIDGE SQ PRN (10:00)
[2017-07-13] MEDS ORDERED: ENOXAPARIN SODIUM 40 MG/0.4 ML DISP.SYRIN SQ SCH (10:00)
[2017-07-13] MEDS ORDERED: CLONIDINE HCL 0.1 MG TABLET PO PRN (10:00)
[2017-07-13] MEDS: BLOOD SUGAR DIAGNOSTIC 1 EACH STRIP IN SCH ×5 (10:19→21:54)
[2017-07-13] MEDS: IV D5/ 0.9% NACL 1,000 ML IV PRN (10:20)
[2017-07-13] MEDS ORDERED: INSULIN REGULAR, HUMAN 100 UNIT/ML 3 ML VIAL SQ PRN (10:30)
[2017-07-13] MEDS: NIFEdipine XL 60 MG TAB PO SCH (10:42)
[2017-07-13] MEDS ORDERED: BLOOD SUGAR DIAGNOSTIC 1 EACH STRIP IN SCH (12:00)
[2017-07-13] MEDS: ASPIRIN EC 81 MG TABLET.DR PO SCH (12:55)
[2017-07-13] MEDS: ENOXAPARIN SODIUM 30 MG/0.3 ML DISP.SYRIN SQ SCH (13:00)
[2017-07-13] MEDS: PROPRANOLOL HCL 10 MG TABLET PO SCH ×2 (14:05→17:32)
[2017-07-13] MEDS: INSULIN REGULAR, HUMAN 100 UNIT/ML 3 ML VIAL SQ PRN ×2 (14:11→21:57)
[2017-07-13 16:00] VITALS: BP 122/52
[2017-07-13] MEDS: CALCIUM CARBONATE (1250) 500 MG TABLET PO SCH (17:33)
--- NOTE | 2017-07-13 19:01 | NUR ---
RN Opening notes pt awake alert and verbally responsive, mohawk speaking, on room air,no SOB noted. Denies any pain or discomfort at this time. Dr Arriola with admitting orders carried out as ordered and continue to monitor. Call light within reach. IV site LAC patent, intact, no redness, no infiltration noted ivf running with no ase noted.Will continue to monitor accordingly and endorse to next shift for continuity of care Safety measures in place.
[2017-07-13 19:30] VITALS: BP 132/65
--- NOTE | 2017-07-13 19:45 | NUR ---
MARY ASLEEP, PROVIDED QUIET ENVIRONMENT. TO CONTINUE
[2017-07-13 20:45] VITALS: BP 132/65
--- NOTE | 2017-07-13 20:45 | NUR ---
MSRN ASSISTED BY SENIOR PYTHON DEVELOPER TO RESTROOM, VOIDED FREELY. MOZAMBICAN SPEAKING, MIN ASSIST DURING AMBULATION. HFR, EMPHASIZED SAFETY PRECAUTIONS, TRANSLATED. APPEARS TO UNDERSTAND.
[2017-07-13] MEDS: ATORVASTATIN 10 MG TABLET PO SCH (21:54)
[2017-07-13] MEDS: VALSARTAN 80 MG TABLET PO SCH (21:55)
[2017-07-13] MEDS ORDERED: INSULIN DETEMIR 100 UNIT/ML CARTRIDGE SQ SCH (22:00)
--- NOTE | 2017-07-13 22:10 | NUR ---
MSRN BS WAS 191, COVERED WITH 3 UNITS REGULAR INSULIN SQ. SNACKS PROVIDED.
[2017-07-14] MEDS: IV D5/ 0.9% NACL 1,000 ML IV PRN (06:21)
[2017-07-14] MEDS: INSULIN REGULAR, HUMAN 100 UNIT/ML 3 ML VIAL SQ PRN ×3 (06:35→21:40)
[2017-07-14] MEDS: BLOOD SUGAR DIAGNOSTIC 1 EACH STRIP IN SCH ×4 (06:36→21:27)
--- NOTE | 2017-07-14 06:42 | NUR ---
MSRN BS 139, COVERED WITH 2 UNITS REGULAR INSULIN SQ. ASSISTED BACK TO BED. KEPT COMFORTABLE.
[2017-07-14 06:52] LABS: BASOPHILS % (AUTO) 0.6 % (0.0-2.0); EOSINOPHILS # (AUTO) 0.2 /CMM (0.0-0.7); EOSINOPHILS % (AUTO) 3.4 % (0.0-6.0); HEMATOCRIT 30 % (33-45); HEMOGLOBIN 9.8 g/dL (11.5-14.8); LYMPHOCYTES # (AUTO) 2.9 /CMM (0.8-4.8); MEAN CORPUSCULAR HEMOGLOBIN 30 PG (26.0-33.0); MEAN CORPUSCULAR HGB CONC 33 g/dl (31.0-36.0); MEAN CORPUSCULAR VOLUME 91 fL (82-100); MONOCYTES # (AUTO) 0.6 /CMM (0.1-1.30); MONOCYTES % (AUTO) 9.2 % (2.0-12.0); NEUTROPHILS # (AUTO) 2.7 /CMM (1.8-8.9); NEUTROPHILS % (AUTO) 41.8 % (43.0-81.0); PLATELET COUNT (AUTO) 226 /CMM (150-450); RDW COEFFICIENT OF VARIATION 15.6 (11.5-15.0); RED BLOOD CELL COUNT(AUTO) 3.24 MIL/uL (4.0-5.2); WHITE BLOOD COUNT (AUTO) 6.5 K/uL (4.3-11.0)
[2017-07-14 07:12] LABS: CALCIUM, SERUM 9.1 mg/dL (8.5-10.1); CARBON DIOXIDE 22 mmol/L (21-32); CHLORIDE 109 mmol/L (98-107); CREATININE 2.1 mg/dL (0.6-1.3); GLUCOSE 147 mg/dL (74-106); POTASSIUM 4.8 mmol/L (3.5-5.1); SODIUM SERUM 139 mmol/L (136-145); UREA NITROGEN, BLOOD 44 mg/dL (7-18)
--- NOTE | 2017-07-14 07:40 | NUR ---
MS RN OPENING NOTE PATIENT IS ALERT AND ORIENTED x3. PERIODS OF CONFUSION NEEDS REORIENTATION. CONTINENT USES BEDSIDE COMMODE OR MAY WALK TO RESTROOM WITH WALKER AND STANDBY ASSISTANCE. IV ON LEFT AC INTACT, FLUIDS RUNNING AT THIS TIME. SKIN INTACT. CCHO DIET, BLOOD SUGARS TO BE MONITORED THROUGHOUT SHIFT AND INSULIN TO BE GIVEN NEEDED. AWAITING LAB RESULTS. HOLD ALL DIABETIC MEDICATIONS. CONTINUE IV ANTIBIOTICS. WILL CONTINUE TO MONITOR THROUGHOUT SHIFT.
[2017-07-14 08:00] VITALS: BP 142/69
[2017-07-14] MEDS: CALCIUM CARBONATE (1250) 500 MG TABLET PO SCH ×2 (08:15→16:44)
[2017-07-14] MEDS: PANTOPRAZOLE 40 MG TABLET.DR PO SCH (08:15)
[2017-07-14] MEDS: LEVOTHYROXINE SODIUM 100 MCG TABLET PO SCH (08:16)
[2017-07-14] MEDS: NIFEdipine XL 60 MG TAB PO SCH (08:16)
[2017-07-14] MEDS: ASPIRIN EC 81 MG TABLET.DR PO SCH (08:16)
[2017-07-14] MEDS: VALSARTAN 80 MG TABLET PO SCH ×2 (08:17→20:36)
[2017-07-14] MEDS: ENOXAPARIN SODIUM 30 MG/0.3 ML DISP.SYRIN SQ SCH (08:23)
[2017-07-14] MEDS: CEFTRIAXONE 1 G in IV D5W 50 ML IV SCH (08:44)
[2017-07-14] MEDS: PROPRANOLOL HCL 10 MG TABLET PO SCH ×3 (08:55→16:44)
[2017-07-14] MEDS: NATEGLINIDE 60 MG TABLET PO SCH ×2 (12:13→16:44)
[2017-07-14 16:00] VITALS: BP 106/56
--- NOTE | 2017-07-14 16:57 | NUR ---
Patient speaks Icelandic, she lives locally with her son/family. Patient is ambulates with a cane as needed and semi-independent with adl's. Has good family support. Current plan is to return home, son will provide ride when discharge. Addendum: 07/14/17 at 1657 by KELLY CORRAL RN Amended: Links added.
--- NOTE | 2017-07-14 18:30 | NUR ---
MS RN CLOSING NOTE PATIENT IS ALERT AND ORIENTED x3. NO PAIN AT THIS TIME. NO SOB OR DISTRESS NOTED. CALL LIGHT WITHIN REACH AT ALL TIMES. SAFETY MEASURES IMPLEMENTED. ALL DUE MEDICATIONS GIVEN ORDERED. ALL NURSING CARE NEEDS ATTENDED TO. AMBULATORY WITH ASSISTANCE AND WALKER. BLOOD SUGARS MONITORED THROUGHOUT SHIFT AND INSULIN GIVEN NEEDED. PATIENT IVF DISCONTINUED. PATIENT STARTED ON STARLIX 60 MG. HAS LABS FOR TOMORROW. LEFT AC 18G INTACT AND PATENT, NO REDNESS OR SWELLING NOTED. WILL ENDORSE TO HELP DESK AGENT NURSE FOR KEY
--- NOTE | 2017-07-14 19:40 | NUR ---
MSRN FULLY AWAKE, FAMILY AT BEDSIDE. FAMILYS' CONCERNS REGARDING DISCHARGE. INFORMED NEED FINAL RESULTS OF URINE AND BLOOD CULTURES. BLOOD SUGAR CONTROLLED FOR NOW. SAFETY PRECAUTIONS EMPHASIZED TO PATIENT , FAMILY TRANSLATING. APPEARS TO UNDERSTAND. FORGETFUL NEED TO BE REMINDED PATRICIA.
--- NOTE | 2017-07-14 20:53 | NUR ---
MSNedN ASSISTED BY PROBLEM MANAGER TO RESTROOM, VOIDED FREELY. DUE MEDS ADMINISTERED.
[2017-07-14 21:00] VITALS: BP 124/65
[2017-07-14] MEDS: ATORVASTATIN 10 MG TABLET PO SCH (21:27)
--- NOTE | 2017-07-15 00:10 | NUR ---
MSRN HAS BEEN GOING TO RESTROOM WITHOUT CALLING. BED ALARM ON. ASSISTED TO RESTROOM WITH MIN ASSIST. FREQ REMINDED TO CALL STAFF FOR ASSISTANCE. PATIENT IS FORGETFUL.
[2017-07-15 05:11] VITALS: BP 124/65
[2017-07-15 06:25] LABS: BASOPHILS % (AUTO) 0.6 % (0.0-2.0); EOSINOPHILS # (AUTO) 0.2 /CMM (0.0-0.7); EOSINOPHILS % (AUTO) 3.2 % (0.0-6.0); HEMATOCRIT 31 % (33-45); HEMOGLOBIN 10.3 g/dL (11.5-14.8); LYMPHOCYTES # (AUTO) 2.5 /CMM (0.8-4.8); LYMPHOCYTES % (AUTO) 37.8 % (20.0-44.0); MEAN CORPUSCULAR HEMOGLOBIN 30 PG (26.0-33.0); MEAN CORPUSCULAR HGB CONC 33 g/dl (31.0-36.0); MEAN CORPUSCULAR VOLUME 91 fL (82-100); MONOCYTES # (AUTO) 0.7 /CMM (0.1-1.30); MONOCYTES % (AUTO) 10.8 % (2.0-12.0); NEUTROPHILS # (AUTO) 3.1 /CMM (1.8-8.9); NEUTROPHILS % (AUTO) 47.6 % (43.0-81.0); PLATELET COUNT (AUTO) 236 /CMM (150-450); RDW COEFFICIENT OF VARIATION 15.2 (11.5-15.0); RED BLOOD CELL COUNT(AUTO) 3.38 MIL/uL (4.0-5.2); WHITE BLOOD COUNT (AUTO) 6.5 K/uL (4.3-11.0)
--- NOTE | 2017-07-15 06:34 | NUR ---
MSRN SAFETY PRECAUTIONS REMINDED, FORGETFUL. NEEDS FREQ ROUNDINGS.
[2017-07-15 06:35] LABS: CALCIUM, SERUM 9.4 mg/dL (8.5-10.1); CARBON DIOXIDE 22 mmol/L (21-32); CHLORIDE 108 mmol/L (98-107); CREATININE 2.2 mg/dL (0.6-1.3); GLUCOSE 164 mg/dL (74-106); MAGNESIUM 2.1 mg/dL (1.8-2.4); SODIUM SERUM 139 mmol/L (136-145); UREA NITROGEN, BLOOD 48 mg/dL (7-18)
[2017-07-15] MEDS: BLOOD SUGAR DIAGNOSTIC 1 EACH STRIP IN SCH ×4 (06:43→21:33)
[2017-07-15] MEDS: INSULIN REGULAR, HUMAN 100 UNIT/ML 3 ML VIAL SQ PRN ×4 (06:47→21:34)
--- NOTE | 2017-07-15 06:48 | NUR ---
MSRN BS WAS 163 COVERED WITH 3 UNITS REG INSULIN SQ.
[2017-07-15 08:00] VITALS: BP 128/73
--- NOTE | 2017-07-15 08:00 | NUR ---
RN NOTES RECEIVED PATIENT IN THE BED. A/O X2/3, NIGERIEN SPEAKER, PATIENT HAS NO RESPIRATORY DISTRESS, V/S TAKEN STABLE, NO C/O PAIN, PT MED COMPLIANT, V/S STABLE. PATIENT NEED REDIRECTION, SAFETY AND FALL PRECAUTION MAINTAINED ALL THE TIME WITH HELP OF ASSISTANT DIRECTOR OF SECURITY, IV LINE ON LFT AC AREA INTACT, ALSO ASSIST TO AMBULATE, AND BATHROOM. CALL LIGHT WITHIN TO REACH. CONTINUED MONITORING.
[2017-07-15] MEDS: NATEGLINIDE 60 MG TABLET PO SCH ×3 (08:12→17:19)
[2017-07-15] MEDS: LEVOTHYROXINE SODIUM 100 MCG TABLET PO SCH (08:12)
[2017-07-15] MEDS: ASPIRIN EC 81 MG TABLET.DR PO SCH (08:12)
[2017-07-15] MEDS: PANTOPRAZOLE 40 MG TABLET.DR PO SCH (08:12)
[2017-07-15] MEDS: VALSARTAN 80 MG TABLET PO SCH ×2 (08:13→21:00)
[2017-07-15] MEDS: CALCIUM CARBONATE (1250) 500 MG TABLET PO SCH ×2 (08:13→17:19)
[2017-07-15] MEDS: ENOXAPARIN SODIUM 30 MG/0.3 ML DISP.SYRIN SQ SCH (08:15)
[2017-07-15] MEDS: CEFTRIAXONE 1 G in IV D5W 50 ML IV SCH (08:50)
[2017-07-15] MEDS: NIFEdipine XL 60 MG TAB PO SCH (09:49)
[2017-07-15 10:30] VITALS: BP 118/59
[2017-07-15] MEDS: PROPRANOLOL HCL 10 MG TABLET PO SCH ×3 (12:00→16:36)
--- NOTE | 2017-07-15 12:34 | NUR ---
RN NOTES PATIENT IN THE ROOM, NO ACUTE /NO RESPIRATORY DISTRESS, BS-196 MG/DL, V/S STABLE, PATIENT EATING LUNCH AT THIS TIME. CALL LIGHT WITHIN TO REACH. PATIENT MED COMPLIANT, SAFETY PRECAUTION, AND FALL PRECAUTION MAINTAINED ALL THE TIME WITH HELP OF VOLUNTEER PATIENT REPRESENTATIVE, CONTINUED MONITORING.
--- NOTE | 2017-07-15 13:16 | NUR ---
RN NOTES PATIENT V/S TAKEN BP -93/ 53, P-76, SITTING IN THE CHAIR, ASSIST PATIENT BACK TO THE BED. ENCOURAGED PATIENT TO INCREASE FLUID INTAKE, SAFETY/ FALL PRECAUTION MAINTAINED ALL THE TIME, BED ALARM ON, CALL LIGHT WITHIN TO REACH, IV LINE AC AREA NS 70 ML HR INTACT. CONTINUED MONITORING.
[2017-07-15 13:28] VITALS: BP 100/53
[2017-07-15 16:00] VITALS: BP 112/56
--- NOTE | 2017-07-15 17:00 | NUR ---
RN NOTES PATIENT SITTING IN THE HALLWAY, FORGETFUL, QUIET , REDIRECTABLE, BS-150 MG/DL, PATIENT MED COMPLIANT, V/S STABLE, HELD BP MEDICATION, ENCOURAGED TO INCREASE FLUID INTAKE, SAFETY PRECAUTION MAINTAINED ALL THE TIME.
--- NOTE | 2017-07-15 19:00 | NUR ---
RN NOTES PATIENT IN THE BED, NO ACUTE/ NO RESPIRATORY DISTRESS AT THIS TIME, CALL LIGHT WITHIN TO REACH, SAFETY PRECAUTION MAINTAINED ALL THE TIME. ENDORSED ONCOMING NURSE FOR CONTINUATION OF CARE.
--- NOTE | 2017-07-15 19:40 | NUR ---
MS RN INITIAL NOTES PT IS IN BED RESTING, EATING GRAPES. A/O X3, URUGUAYAN SPEAKING. NO SIGNS OF SOB OR DISTRESS. BREATHING EVENLY AND UNLABORED ON RA. PT IS REFUSING IV FLUIDS, EDUCATION WAS GIVEN. BED IS IN LOW AND LOCKED POSITION WITH BED ALARM ON. CALL LIGHT IS WITHIN REACH. WILL CONTINUE TO MONITOR PT.
[2017-07-15 20:00] VITALS: BP 123/55
[2017-07-15] MEDS: ATORVASTATIN 10 MG TABLET PO SCH (21:33)
[2017-07-16] MEDS: BLOOD SUGAR DIAGNOSTIC 1 EACH STRIP IN SCH ×4 (06:29→22:44)
[2017-07-16] MEDS: INSULIN REGULAR, HUMAN 100 UNIT/ML 3 ML VIAL SQ PRN ×4 (06:34→23:06)
--- NOTE | 2017-07-16 06:48 | NUR ---
MS RN CLOSING NOTES PT IS IN BED RESTING, SLEPT WELL. STABLE THROUGHOUT MY SHIFT. NO ACUTE CHANGES. BED IS IN LOW AND LOCKED POSITION, CALL LIGHT WITHIN REACH. WILL ENDORSE TO DAYSHIFT
--- NOTE | 2017-07-16 07:36 | NUR ---
MS/RN NOTES PATIENT RECEIVED AWAKE IN BED IN NO ACUTE SIGNS OF DISTRESS. A/O X3, VERBALLY RESPONSIVE, SLOVENIAN SPEAKING, DENIES ANY PAIN OR DISCOMFORTS AT THIS TIME. ON ROOM AIR, BREATHING EVEN AND UNLABORED. IV ACCESS ON LEFT AC G#18 INTACT AND PATENT. HOB ELEVATED. BED IN LOW AND LOCKED POSITION. CALL KINCAID WITHIN REACH. WILL CONTINUE TO MONITOR PT ACCORDINGLY.
[2017-07-16 08:00] VITALS: BP_SYST 123; BP_SYST 127; BP_DIAS 64; BP_DIAS 89
[2017-07-16] MEDS: LEVOTHYROXINE SODIUM 100 MCG TABLET PO SCH (08:06)
[2017-07-16] MEDS: ASPIRIN EC 81 MG TABLET.DR PO SCH (08:06)
[2017-07-16] MEDS: CALCIUM CARBONATE (1250) 500 MG TABLET PO SCH ×2 (08:06→16:56)
[2017-07-16] MEDS: NATEGLINIDE 60 MG TABLET PO SCH ×3 (08:06→16:57)
[2017-07-16] MEDS: PANTOPRAZOLE 40 MG TABLET.DR PO SCH (08:06)
[2017-07-16] MEDS: ENOXAPARIN SODIUM 30 MG/0.3 ML DISP.SYRIN SQ SCH (08:06)
[2017-07-16] MEDS: CEFTRIAXONE 1 G in IV D5W 50 ML IV SCH (08:07)
[2017-07-16] MEDS: PROPRANOLOL HCL 10 MG TABLET PO SCH ×3 (08:07→16:56)
[2017-07-16] MEDS: VALSARTAN 80 MG TABLET PO SCH ×2 (08:08→22:44)
[2017-07-16] MEDS: NIFEdipine XL 60 MG TAB PO SCH (08:08)
[2017-07-16 16:00] VITALS: BP 115/60
--- NOTE | 2017-07-16 16:19 | NUR ---
RN NOTES RECEIVED RESPONSE FROM DR LEONARD AND SAID NOT TO GIVE PATIENT IVF AT THIS TIME. WILL CONTINUE TO MONITOR
--- NOTE | 2017-07-16 17:23 | NUR ---
RN NOTES SAW THAT DR BRYAN NOTES THAT PT TO CONTINUE TO IV HYDRATION BUT ODERED OF D5 NS DC'D ALREADY. LEFT MESSAGE IF TO RE-START THE SAME IV OR TO GIVE DIFFERENT KIND. WILL FOLLOW-UP AND WILL ENDORSED TO INSTRUCTOR CORRESPONDENCE SCHOOL.
--- NOTE | 2017-07-16 19:20 | NUR ---
MS/RN NOTES PATIENT RESTING IN BED AT THIS TIME. A/O X3, KAZAKH SPEAKING, NO SIGNIFICANT CHANGES NOTED THROUGHOUT THE DAY. ON ROOM AIR, BREATHING EVEN WITH NO SOB NOTED. IV ACCESS ON LEFT AC G#18 INTACT AND PATENT, SL ONLY. HOB KEPT ELEVATED. KEPT BED IN LOW AND LOCKED POSITION. CALL LIGHT WITHIN REACH. ALL SAFETY PRECAUTIONS MAINTAINED. ALL NEEDS AND CARE ATTENDED WELL. ENDORSED TO COMPLETION ENGINEER NURSE FOR KEY. .
--- NOTE | 2017-07-16 19:35 | NUR ---
RN OPENING NOTES RECEIVED REPORT FROM DANNY RN. FOUND Pt AWAKE, RESTING IN BED. NO S/S OF ACUTE DISTRESS OR SEVERE SOB NOTED. Pt IS A/OX2-3, UKRAINIAN SPEAKING ONLY. NO C/O PAIN AT THIS TIME. IV ACCESS ON LAC #18G. SAFETY MEASURES IN PLACE. BED LOW, LOCKED, HOB ELEVATED, SIDE RAILS UP, CALL LIGHT AND BEDSIDE TABLE WITHIN REACH. BED ALARM ON. WILL CONTINUE TO MONITOR Pt THROUGHOUT THE NIGHT FOR SAFETY.
[2017-07-16 20:00] VITALS: BP 115/57
[2017-07-16 20:11] VITALS: BP 115/57
--- NOTE | 2017-07-16 22:00 | NUR ---
HS BG 208. ADMINISTERED 4UN OF INSULIN PER SLIDING SCALE. PROVIDED SNACKS AT BEDSIDE.
[2017-07-16] MEDS: ATORVASTATIN 10 MG TABLET PO SCH (22:44)
[2017-07-17] MEDS: LEVOTHYROXINE SODIUM 100 MCG TABLET PO SCH (06:24)
[2017-07-17] MEDS: BLOOD SUGAR DIAGNOSTIC 1 EACH STRIP IN SCH ×3 (06:24→17:37)
[2017-07-17] MEDS: PANTOPRAZOLE 40 MG TABLET.DR PO SCH (06:24)
--- NOTE | 2017-07-17 06:30 | NUR ---
AC BG 211. ADMINISTERED 4UN OF INSULIN PER SLIDING SCALE.
[2017-07-17] MEDS: INSULIN REGULAR, HUMAN 100 UNIT/ML 3 ML VIAL SQ PRN ×2 (06:31→13:28)
--- NOTE | 2017-07-17 06:35 | NUR ---
RN CLOSING NOTES NO SIGNIFICANT CHANGES IN Pt's CONDITION. Pt REMAINS STABLE AT THIS TIME. NO S/S OF ACUTE DISTRESS OR SOB NOTED DURING THE NIGHT. ALL NEEDS MET AND ATTENDED TO. SAFETY MEASURES IN PLACE. BED LOW, LOCKED, HOB ELEVATED, SIDE RAILS UP, CALL LIGHT AND BEDSIDE TABLE WITHIN REACH. WILL ENDORSE TO DAYSHIFT RN FOR Pt's KEY.
--- NOTE | 2017-07-17 07:45 | NUR ---
RN OPENING NOTES RECEIVED PT. IN BED A&OX3. BREATHING UNLABORED, AND EVENLY ON ROOM AIR. NO S/S OF ACUTE DISTRESS. IV ACCESS IS INTACT. BED IS IN LOWEST LOCKED POSITION, 2 SIDE RAILS UP, AND INSTRUCTED PT. TO USE CALL LIGHT FOR ASSISTANCE. WILL CONTINUE TO ASSESS AND MONITOR.
[2017-07-17 08:00] VITALS: BP 120/59
[2017-07-17] MEDS: CEFTRIAXONE 1 G in IV D5W 50 ML IV SCH (08:38)
[2017-07-17] MEDS: NATEGLINIDE 60 MG TABLET PO SCH ×3 (08:38→17:30)
[2017-07-17] MEDS: ASPIRIN EC 81 MG TABLET.DR PO SCH (08:56)
[2017-07-17] MEDS: CALCIUM CARBONATE (1250) 500 MG TABLET PO SCH ×2 (08:56→17:34)
[2017-07-17] MEDS: PROPRANOLOL HCL 10 MG TABLET PO SCH ×3 (08:56→17:34)
[2017-07-17] MEDS: VALSARTAN 80 MG TABLET PO SCH (08:57)
[2017-07-17] MEDS: NIFEdipine XL 60 MG TAB PO SCH (08:57)
[2017-07-17] MEDS: ENOXAPARIN SODIUM 30 MG/0.3 ML DISP.SYRIN SQ SCH (08:59)
[2017-07-17 16:00] VITALS: BP 109/59
[2017-07-17 17:34] VITALS: BP 109/59
--- NOTE | 2017-07-17 17:50 | NUR ---
RN NOTES BLOOD SUGAR WAS 49 MG/DL NO S/S OF HYPOGLYCEMINA INITIATED PROTOCOL FOR HYPOGLYCEMIA. ADMINISTERED DEXTROSE IVP.
--- NOTE | 2017-07-17 18:14 | NUR ---
BLOOD SUGAR RECHECKED 140 MG/DL.
--- NOTE | 2017-07-17 19:10 | NUR ---
MEDICAL CLAIMS MANAGER NOTES PT. LEFT IN MEDICALLY STABLE CONDITION WITH SON ALONG SIDE. DISCHARGE INSTRUCTIONS WERE EXPLAINED, EDUCATIONS WAS PROVIDED, AND PT.'S SON VERBALIZED UNDERSTANDING. BELONGINGS LIST WAS CHECKED, AND SIGNED. PT.'S IV AND ID BAND WAS REMOVED WITHOUT COMPLICATIONS. PT. LEFT IN WHEELCHAIR WITH BELONGINGS, AND DISCHARGE PACKET. ALL QUESTIONS WERE ANSWERED.
== END 2017-07-17 19:00 | disposition home or self-care (01) | DRG 872 ==
LOC: ER 07:05 → MED 08:44
PROVIDERS: ADMIT Legal Medicine; ATTEND Legal Medicine
DX: A41.9 Sepsis, unspecified organism (principal); E11.22 Type 2 diabetes mellitus with diabetic chronic kidney disease; E11.649 Type 2 diabetes mellitus with hypoglycemia without coma; N39.0 Urinary tract infection, site not specified; F03.90 Unspecified dementia, unspecified severity, without behavioral disturbance, psychotic disturbance, mood disturbance, and anxiety; I25.10 Atherosclerotic heart disease of native coronary artery without angina pectoris; Z79.4 Long term (current) use of insulin; Z79.82 Long term (current) use of aspirin; M19.90 Unspecified osteoarthritis, unspecified site; I12.9 Hypertensive chronic kidney disease with stage 1 through stage 4 chronic kidney disease, or unspecified chronic kidney disease; N18.3 Chronic kidney disease, stage 3 (moderate)
CPT/HCPCS: 36415; 71010-TC; 80048-TC; 80076-TC; 81000-TC; 82962-TC; 83605-TC; 83690-TC; 83735-TC; 84484-TC; 85025-TC; 87040-TC; 87081-TC; 87086-TC; 87186-TC; A4606; J0696; J1650; J1815; J3490; J7042; J7060; Z7610

== ENCOUNTER 2017-08-01 06:10 | Inpatient (IN) | payer MEDICARE, MEDICAID ==
[~2017-08-01] VITALS: Ht 157.5 cm; Wt 56.2 kg
[~2017-08-01 06:10] MED LIST changes: -ACET-868 PO; -BISA10SU8 RC; -BLOO-668 IN; +CALC500T51 PO; -CHOL100044 PO; -CLON0.1T PO; -DOCU-25 PO; +LEVO100T9 PO; -LEVO50TA8 PO; -MAGN400O6 PO; -NA P133E RC; -PANT40TA4 PO; -SITA50TA PO
[2017-08-01] MEDS ORDERED: DEXTROSE 50%-WATER 50 ML DISP.SYRIN ONE (06:16)
--- NOTE | 2017-08-01 06:20 | NUR ---
BIB FAMILY FROM HOME. PER FAMILY STATES "AMS X 10MINS CONTACT CENTER TEAM LEAD" HX HYPOGLYCEMIA. PT AOX1 RR EVEN AND UNLABORED. NO SOB NOTED. NO NVD AT THIS TIME. PT NOT DIAPHORETIC. PT GOWNED AND PLACED ON MONITOR. DR MCMILLAN AT BEDSIDE FOR EVAL.
--- NOTE | 2017-08-01 06:23 | NUR ---
URINE SPECIMEN OBTAINED AND SENT TO LAB.
--- NOTE | 2017-08-01 06:25 | NUR ---
PT AWAKE AND ORIENTED AFTER AMP OF D50 GIVEN PER MD ORDERS.
[2017-08-01] MEDS ORDERED: IV NS 0.9% 500 ML BAG IV ONE (06:30)
[2017-08-01] MEDS ORDERED: DEXTROSE 50%-WATER 50 ML DISP.SYRIN IV ONE (06:30)
[2017-08-01 06:40] LABS: BASOPHILS % (AUTO) 0.7 % (0.0-2.0); EOSINOPHILS # (AUTO) 0.3 /CMM (0.0-0.7); EOSINOPHILS % (AUTO) 4.3 % (0.0-6.0); HEMATOCRIT 35 % (33-45); HEMOGLOBIN 11.4 g/dL (11.5-14.8); LYMPHOCYTES # (AUTO) 2.9 /CMM (0.8-4.8); LYMPHOCYTES % (AUTO) 46.8 % (20.0-44.0); MEAN CORPUSCULAR HEMOGLOBIN 29 PG (26.0-33.0); MEAN CORPUSCULAR HGB CONC 32 g/dl (31.0-36.0); MEAN CORPUSCULAR VOLUME 91 fL (82-100); MONOCYTES # (AUTO) 0.7 /CMM (0.1-1.30); MONOCYTES % (AUTO) 11.3 % (2.0-12.0); NEUTROPHILS # (AUTO) 2.3 /CMM (1.8-8.9); NEUTROPHILS % (AUTO) 36.9 % (43.0-81.0); PLATELET COUNT (AUTO) 293 /CMM (150-450); RDW COEFFICIENT OF VARIATION 15.1 (11.5-15.0); RED BLOOD CELL COUNT(AUTO) 3.88 MIL/uL (4.0-5.2); WHITE BLOOD COUNT (AUTO) 6.1 K/uL (4.3-11.0)
[2017-08-01 06:47] LABS: SERUM AMMONIA 11 umol/L (11-32)
[2017-08-01 07:06] LABS: APPEARANCE,URINE CLEAR (CLEAR); BILIRUBIN,URINE NEGATIVE (NEGATIVE); BLOOD, URINE NEGATIVE Ery/uL (NEGATIVE); COLOR,URINE YELLOW (YELLOW); KETONES,URINE NEGATIVE (NEGATIVE); LEUKOCYTE ESTERASE ,URINE NEGATIVE (NEGATIVE); NITRITE, URINE NEGATIVE (NEGATIVE); PROTEIN,URINE NEGATIVE (NEGATIVE); UGLUCOSE NEGATIVE (NEGATIVE); UROBILINOGEN,URINE 0.2 EU/dL (0.2)
--- NOTE | 2017-08-01 07:07 | NUR ---
AMY NOTED AT 165. DR. MCMILLAN MADE AWARE
[2017-08-01 07:09] LABS: ALANINE AMINOTRANSFERASE 38 U/L (12-78); ALBUMIN 3.4 g/dL (3.4-5.0); ALCOHOL, BLOOD < 3 mg/dL (0-0); ALKALINE PHOSPHATASE 96 U/L (46-116); ASPARTATE AMINOTRANSFERASE 33 U/L (15-37); BILIRUBIN,TOTAL 0.3 mg/dL (0.2-1.0); CALCIUM, SERUM 9.6 mg/dL (8.5-10.1); CARBON DIOXIDE 24 mmol/L (21-32); CHLORIDE 109 mmol/L (98-107); CREATININE 2.6 mg/dL (0.6-1.3); INR 0.92 (0.87-1.13); POTASSIUM 4.8 mmol/L (3.5-5.1); PROTHROMBIN TIME 9.6 SECS (9.5-12.7); SODIUM SERUM 143 mmol/L (136-145); TOTAL PROTEIN, SERUM 8.9 g/dL (6.4-8.2); UREA NITROGEN, BLOOD 62 mg/dL (7-18)
[2017-08-01 07:14] LABS: ACETAMINOPHEN 0 ug/ml (10-30); GLUCOSE 46 mg/dL (74-106); SALICYLATE 1.8 mg/dL (2.8-20.0)
--- NOTE | 2017-08-01 07:20 | NUR ---
DR LEONARD PAGED . ADMIT TO [facility] PER VOICE MAIL INSTRUCTIONS.
[2017-08-01 07:24] LABS: TROPONIN I < 0.017 ng/mL (0.00-0.056)
[2017-08-01] MEDS ORDERED: POTA8TAB8 PO (07:54)
[2017-08-01 07:58] LABS: THYROID STIMULATING HORMONE 0.803 uIU/mL (0.358-3.74)
[2017-08-01] MEDS ORDERED: MAG HYDROX/AL HYDROX/SIMETH 30 ML UDC PO PRN (08:30)
[2017-08-01] MEDS ORDERED: HYDROCODONE/APAP 5/325MG 1 EACH TABLET PO PRN (08:30)
[2017-08-01] MEDS ORDERED: Z GUARD REMEDY 2 OZ OINT TP PRN (08:30)
[2017-08-01] MEDS ORDERED: ZOLPIDEM TARTRATE 5 MG TABLET PO PRN (08:30)
[2017-08-01] MEDS ORDERED: ONDANSETRON HCL/PF 4 MG/2 ML VIAL IVP PRN (08:30)
[2017-08-01] MEDS ORDERED: DEXTROSE 50%-WATER 50 ML DISP.SYRIN IV PRN (08:30)
[2017-08-01] MEDS ORDERED: MAGNESIUM HYDROXIDE 30 ML UDC PO PRN (08:30)
[2017-08-01] MEDS ORDERED: ACETAMINOPHEN 325 MG TABLET PO PRN (08:30)
--- NOTE | 2017-08-01 08:51 | NUR ---
REPORT GIVEN TO [facility] FOR ADMISSION. ROOM 327-2
[2017-08-01] MEDS ORDERED: Medication Not On Formulary EA (Potassium Chloride 8 MEQ) PO SCH (09:00)
--- NOTE | 2017-08-01 09:20 | NUR ---
PATIENT TRANSPORTED TO [facility] VIA ACLS PROTOCOL. [facility] TO PROVIDE KEY.
--- NOTE | 2017-08-01 09:30 | NUR ---
Received form ER via gurney, alert, fully awake, verbally responsive , speaks Gabonese with Zandra, FLOOR REFINISHER acted as science interpreter to patient, who appeared calm & cooperative to nursing tasks.
[2017-08-01] MEDS: LEVOTHYROXINE SODIUM 100 MCG TABLET PO SCH (10:44)
[2017-08-01] MEDS: CALCIUM CARBONATE (1250) 500 MG TABLET PO SCH ×2 (10:44→17:00)
[2017-08-01] MEDS: NIFEdipine XL 60 MG TAB PO SCH (10:45)
[2017-08-01] MEDS: ASPIRIN EC 81 MG TABLET.DR PO SCH (10:45)
[2017-08-01] MEDS: IV D5/0.45 NACL 1,000 ML IV PRN (12:09)
[2017-08-01] MEDS: BLOOD SUGAR DIAGNOSTIC 1 EACH STRIP VI SCH ×3 (12:10→22:00)
[2017-08-01] MEDS: PROPRANOLOL HCL 10 MG TABLET PO SCH ×2 (12:38→17:01)
--- NOTE | 2017-08-01 13:30 | NUR ---
- Patient tolerated lunch , started IV fluid as ordered by MD.
[2017-08-01 16:00] VITALS: BP 149/70
[2017-08-01 16:17] VITALS: BP 149/70
[2017-08-01] MEDS: *INSULIN REGULAR(HUMULIN R)HUM 100 UNIT/ML VIAL SQ PRN (17:26)
--- NOTE | 2017-08-01 18:06 | NUR ---
- patient tolerated consistent carbohydrate diet about 30% of beef stew, claimed doesn't like meat served , vanilla pudding was consumed & orange juice . Still with infusing D5 1/2 NS VIA pump.
--- NOTE | 2017-08-01 18:08 | NUR ---
RN CLOSING NOTES: - Patient tolerated dinner & consumed vanilla pudding & orange juice, only 10% of beef stew was taken, with ongoing IV fluid via pump, able to ambulate to bathroom with supervision, continent of both bowel & bladder.,call light within reach. Telemetry reading showed SR with 2nd degree AV BLOCK same as in ER this am. Denies pain , no complaints.
--- NOTE | 2017-08-01 19:45 | NUR ---
HAND II CUTTER OPENING NOTES RECEIVED PATIENT RESTING IN BED, AWAKE, A & O X 4, ICELANDIC SPEAKING. NO C/O PAIN, SOB OR ACUTE DISTRESS NOTED. NO EPISODE OF CONFUSION OR INCOHERENCE NOTED. ABLE TO MAKE NEEDS KNOWN CLEARLY. ON TELE MONITORING WITH SR 60 W/1ST DEGREE AV BLOCK. IV ACCESS TO LAC, INTACT PATENT RUNNING WITH D5 1/2 NS @ 75 ML/HR. NO S/S OF HYPOGLYCEMIA NOTED. SAFETY MEASURES IN PLACE. BED ALARM ON & IN LOW LOCKED POSITION. CALL LIGHT WITHIN REACH. WILL OBSERVE CLOSELY.
[2017-08-01 20:00] VITALS: BP 109/53
[2017-08-01] MEDS ORDERED: PRAVASTATIN SODIUM 20 MG TABLET PO SCH (22:00)
[2017-08-01] MEDS: ATORVASTATIN 10 MG TABLET PO SCH (22:00)
[2017-08-02] VITALS: BP 120/62
--- NOTE | 2017-08-02 01:55 | NUR ---
IV SITE CHANGED PT'S LAC IV SITE NOTED TO BE LEAKING, REMOVED IV CATHETER, PRESSURE DRESSING APPLIED. NEW IV LINE INSERTED TO LEFT WRIST WITH GOOD BLOOD FLOW RETURN, PROCEDURE TOLERATED WELL. OBSERVING CLOSELY.
[2017-08-02] MEDS: IV D5/0.45 NACL 1,000 ML IV PRN (02:50)
[2017-08-02 04:00] VITALS: BP 122/70
[2017-08-02 06:48] LABS: CALCIUM, SERUM 9.2 mg/dL (8.5-10.1); CARBON DIOXIDE 22 mmol/L (21-32); CHLORIDE 104 mmol/L (98-107); CREATININE 2.2 mg/dL (0.6-1.3); GLUCOSE 211 mg/dL (74-106); MAGNESIUM 2.2 mg/dL (1.8-2.4); PHOSPHORUS 3.4 mg/dL (2.5-4.9); POTASSIUM 4.6 mmol/L (3.5-5.1); SODIUM SERUM 133 mmol/L (136-145); UREA NITROGEN, BLOOD 51 mg/dL (7-18)
--- NOTE | 2017-08-02 06:53 | NUR ---
BI SOLUTIONS ARCHITECT CLOSING NOTES PATIENT SLEPT INTERMITTENTLY @ NIGHT, A & O X 4, RWANDAN SPEAKING. NO C/O PAIN, SOB OR ACUTE DISTRESS NOTED. NO EPISODE OF ALTERED MENTAL STATUS NOTED. ABLE TO MAKE NEEDS KNOWN CLEARLY. ON TELE MONITORING WITH SR 63 W/1ST DEGREE AV BLOCK/BBB. IV ACCESS TO L WRIST, INTACT PATENT RUNNING WITH D5 1/2 NS @ 75 ML/HR. NO S/S OF HYPOGLYCEMIA NOTED. SAFETY MEASURES IN PLACE. BED ALARM ON & IN LOW LOCKED POSITION. CALL LIGHT WITHIN REACH. WILL OBSERVE CLOSELY.
[2017-08-02] MEDS: INSULIN REGULAR, HUMAN 100 UNIT/ML 3 ML VIAL SQ PRN ×2 (07:10→17:26)
[2017-08-02 07:24] LABS: BASOPHILS # (AUTO) 0.1 /CMM (0.0-0.2); EOSINOPHILS # (AUTO) 0.2 /CMM (0.0-0.7); EOSINOPHILS % (AUTO) 4.1 % (0.0-6.0); HEMATOCRIT 32 % (33-45); HEMOGLOBIN 10.3 g/dL (11.5-14.8); LYMPHOCYTES # (AUTO) 2.3 /CMM (0.8-4.8); LYMPHOCYTES % (AUTO) 38.2 % (20.0-44.0); MEAN CORPUSCULAR HEMOGLOBIN 29 PG (26.0-33.0); MEAN CORPUSCULAR HGB CONC 32 g/dl (31.0-36.0); MEAN CORPUSCULAR VOLUME 93 fL (82-100); MONOCYTES # (AUTO) 0.7 /CMM (0.1-1.30); MONOCYTES % (AUTO) 10.9 % (2.0-12.0); NEUTROPHILS # (AUTO) 2.8 /CMM (1.8-8.9); NEUTROPHILS % (AUTO) 45.8 % (43.0-81.0); PLATELET COUNT (AUTO) 249 /CMM (150-450); RDW COEFFICIENT OF VARIATION 14.6 (11.5-15.0); WHITE BLOOD COUNT (AUTO) 6.1 K/uL (4.3-11.0)
--- NOTE | 2017-08-02 07:54 | NUR ---
RN NOTES RECEIVED PT. PT IS STABLE AND RESTING IN BEDSIDE CHAIR. A/OX4, PT IS COOK ISLANDER SPEAKING. NO S/S OF DISTRESS OR SOB. NO C/O PAIN AT THIS TIME. PT IS ON TELE MONITOR READING SR WITH 1ST DEG AV BLOCK. IV ACCESS LOCATED ON LEFT WRIST 22G RUNNING D5 1/2 NS AT 75 ML/HR. SAFETY MEASURES IN PLACE, CALL LIGHT WITHIN REACH. WILL CONTINUE TO MONITOR.
[2017-08-02 08:00] VITALS: BP 133/70
[2017-08-02] MEDS: CALCIUM CARBONATE (1250) 500 MG TABLET PO SCH ×2 (08:24→16:34)
[2017-08-02] MEDS: ASPIRIN EC 81 MG TABLET.DR PO SCH (08:24)
[2017-08-02] MEDS: NIFEdipine XL 60 MG TAB PO SCH (08:24)
[2017-08-02] MEDS: VALSARTAN 80 MG TABLET PO SCH ×2 (08:24→17:00)
[2017-08-02] MEDS: LEVOTHYROXINE SODIUM 100 MCG TABLET PO SCH (08:24)
[2017-08-02] MEDS: BLOOD SUGAR DIAGNOSTIC 1 EACH STRIP VI SCH ×4 (08:27→22:08)
[2017-08-02] MEDS: PROPRANOLOL HCL 10 MG TABLET PO SCH ×3 (08:28→17:00)
[2017-08-02 16:00] VITALS: BP 129/79
--- NOTE | 2017-08-02 18:39 | NUR ---
RN CLOSING NOTES PT IS IN BEDSIDE CHAIR RESTING. A/OX3. NO S/S OF DISTRESS OR SOB. NO C/O PAIN AT THIS TIME. PT BLOOD SUGAR HAS BEEN WELL CONTROLLED THROUGHOUT THE DAY. NO EPISODES OF HYPOGLYCEMIA. PT TO POSSIBLY BE D/C TOMORROW. SAFETY MEASURES IN PLACE, CALL LIGHT WITHIN REACH. WILL ENDORSE TO SCALDER FOR KEY.
--- NOTE | 2017-08-02 19:15 | NUR ---
RN OPEN NOTES RECEIVED PATIENT AWAKE SITTING IN CHAIR. A/O X3. NO SIGNS OF DISTRESS OR DISCOMFORT. BREATHING EVEN AND UNLABORED. NO S/S OF HYPO/HYPERGLYCEMIA. IV ACCESS IN L WRIST, PATENT AND INTACT, NO SIGNS OF REDNESS OR INFILTRATION. BED IN LOW LOCKED POSITION WITH SIDE RAILS X3. CALL LIGHT WITHIN REACH. WILL CONTINUE TO MONITOR.
[2017-08-02 20:00] VITALS: BP 113/55
[2017-08-02] MEDS: ATORVASTATIN 10 MG TABLET PO SCH (22:06)
[2017-08-02] MEDS: *INSULIN REGULAR(HUMULIN R)HUM 100 UNIT/ML VIAL SQ PRN (22:10)
[2017-08-03] MEDS: BLOOD SUGAR DIAGNOSTIC 1 EACH STRIP VI SCH ×4 (06:32→21:21)
[2017-08-03] MEDS: LEVOTHYROXINE SODIUM 100 MCG TABLET PO SCH (06:34)
--- NOTE | 2017-08-03 07:21 | NUR ---
RN CLOSING NOTES PATIENT RESTING IN BED, EASILY AROUSABLE. A/O X3. NO SIGNS OF DISTRESS OR DISCOMFORT. BREATHING EVEN AND UNLABORED. NO S/S OF HYPO/HYPERGLYCEMIA. IV ACCESS IN L WRIST WITH D5 1/2 NS INFUSING, PATENT AND INTACT, NO SIGNS OF REDNESS OR INFILTRATION. ALL NEEDS MET. NO SIGNIFICANT CHANGES THROUGH THE NIGHT. BED IN LOW LOCKED POSITION WITH SIDE RAILS X3. CALL LIGHT WITHIN REACH. ENDORSED TO AM SHIFT FOR KEY.
--- NOTE | 2017-08-03 07:42 | NUR ---
MS RN: INITIAL NOTE RECEIVED PT A/OX4. HAITIAN SPEAKING. UNDERSTANDS YI. BRP WITH ASSIST. AMBULAOTRY WITH ASSIST. SKIN INTACT. ON CCHO DIET. L WRIST #22 RUNNING D5 1/2 NS AT 75ML/HR. SITE CLEAR AND PATENT. NO DISTRESS NOTED. NO SOB NOTED. NO PAIN NOTED. RESTING COMFORTABLY IN BED. CALL LIGHT WITHIN REACH.
[2017-08-03] MEDS: CALCIUM CARBONATE (1250) 500 MG TABLET PO SCH ×2 (08:18→16:58)
[2017-08-03] MEDS: NIFEdipine XL 60 MG TAB PO SCH (08:18)
[2017-08-03] MEDS: VALSARTAN 80 MG TABLET PO SCH ×2 (08:18→16:57)
[2017-08-03] MEDS: PROPRANOLOL HCL 10 MG TABLET PO SCH ×3 (08:19→16:58)
[2017-08-03] MEDS: ASPIRIN EC 81 MG TABLET.DR PO SCH (08:19)
[2017-08-03 08:38] VITALS: BP 136/66
--- NOTE | 2017-08-03 12:01 | NUR ---
Social service consult requested by Dr. Canales to assess home situation. Pt. is a 76 year old female who was admitted to [facility] for altered mental status. SW and case work aide Brittany Jason met with pt. bedside to assess pt. CHUNG Casas assisted SW with Greek translation since pt. is Greek speaking. Pt. states she resides with her son Loc and his and her grandchildren. Pt. states the family assists her with her ADL's , meals and medications. When asked if she would be willing to go to a SNF, pt. declined stating she wants to go back home. canvassing manager Brittany Jason to contact pt's son Loc regarding pt. having a high readmission score and will suggest home health services for the pt. upon discharge. No other social service needs are requested at this time. SW is available if needed.
[2017-08-03] MEDS: INSULIN REGULAR, HUMAN 100 UNIT/ML 3 ML VIAL SQ PRN (12:04)
[2017-08-03 16:00] VITALS: BP 131/62
--- NOTE | 2017-08-03 16:43 | NUR ---
BG NOTED TO BE 39. RE CHECKED AND NOTED TO BE 40. PT ASYMPTOMATIC. ADMINISTERED DEXTROSE 50 ORDERED/ PROTOCOL. RECHECKED BG NOW 244. NO INSULIN TO BE ADMINISTERED DUE TO HYPOGLYCEMIA. PT ASYMPTOMATIC. RESTING IN BED COMFORTABLY.
--- NOTE | 2017-08-03 18:39 | NUR ---
MS RN: CLOSING NOTE PT A/OX4. SWISS SPEAKING. UNDERSTANDS SLOVENIAN. TOOK ALL MEDICATIONS ON TIME. NO ADVERSE REACTIONS NOTED. NO PAIN NOTED. NO SOB NOTED. NO DISTRESS NOTED. INSULIN GIVEN PER SLIDING SCALE IN 1200. CHECKED INSULIN AT 1630. BG 39-40. PT ASYMPTOMATIC. ADMINISTERED D50 PER PROTOCOL. RECHECKED BG AND IT WENT UP TO 255. PT ASYMPTOMATIC. NO INSULIN ADMINISTERED. NOTIFIED MD LEONARD. AWAITING REPLY. AMBULATORY WITH ASSIST. SKIN INTACT. L WRIST IV #22. NO FLUIDS RUNNING. RESTING COMFORTABLY IN BED. CALL LIGHT WITHIN REACH.
--- NOTE | 2017-08-03 19:36 | NUR ---
MS RN OPENING NOTES RECEIVED PATIENT RESTING IN CHAIR, WATCHING TV, AWAKE, A & O X 4, FILIPINO SPEAKING. NO C/O PAIN, SOB OR ACUTE DISTRESS NOTED. NO CONFUSION OR INCOHERENCE NOTED.IV ACCESS TO WRIST, INTACT PATENT, SL, NO S/S OF INFECTION NOTED. NO S/S OF HYPOGLYCEMIA NOTED. SAFETY MEASURES IN PLACE. BED ALARM ON & IN LOW LOCKED POSITION. CALL LIGHT WITHIN REACH. WILL OBSERVE CLOSELY.
[2017-08-03 20:00] VITALS: BP 128/59
[2017-08-03] MEDS: ATORVASTATIN 10 MG TABLET PO SCH (21:20)
[2017-08-03] MEDS: *INSULIN REGULAR(HUMULIN R)HUM 100 UNIT/ML VIAL SQ PRN (21:23)
--- NOTE | 2017-08-03 22:41 | NUR ---
NEW ORDER AM SHIFT NOTIFIED MD REGARDING PT'S FLUCTUATING BG LEVEL, MD RESPONDED TO CHANGE MODERATE INSULIN SLIDING SCALE TO MILD INSULIN SLIDING SCALE. NOTED & CARRIED OUT. WILL CONTINUE TO MONITOR CLOSELY FOR ANY KEY.
[2017-08-03] MEDS ORDERED: DEXTROSE 50%-WATER 50 ML DISP.SYRIN IV PRN (23:00)
--- NOTE | 2017-08-04 06:41 | NUR ---
MS RN CLOSING NOTES PATIENT SLEPT WELL @ NIGHT. NO C/O PAIN, NO ACUTE CHANGES NOTED. IV ACCESS TO LEFT WRIST, INTACT PATENT, HL. NO S/S OF HYPOGLYCEMIA NOTED. BRP WITH ASSIST. ALL NEEDS MET. BED IN LOW LOCKED POSITION. CALL LIGHT WITHIN REACH. WILL ENDORSE TO AM RN FOR CONTINUITY OF CARE.
--- NOTE | 2017-08-04 07:00 | NUR ---
RN NOTES: PATIENT RESTING IN BED. NO SIGNS OF DISTRESS NOTED. NONLABORED BREATHING ON ROOM AIR. PATIENT DENIES PAIN. PATIENT ALERT ORIENTED X4. IV SITE PATENT AND INTACT. BED IN LOWEST LOCKED POSITION. CALL LIGHT WITHIN REACH. WILL CONTINUE TO MONITOR
[2017-08-04] MEDS: BLOOD SUGAR DIAGNOSTIC 1 EACH STRIP IN SCH ×3 (07:26→17:32)
[2017-08-04] MEDS: INSULIN REGULAR, HUMAN 100 UNIT/ML 3 ML VIAL SQ PRN ×3 (07:29→17:31)
[2017-08-04 08:00] VITALS: BP 136/65
[2017-08-04] MEDS: CALCIUM CARBONATE (1250) 500 MG TABLET PO SCH ×2 (09:00→16:24)
[2017-08-04] MEDS: VALSARTAN 80 MG TABLET PO SCH ×2 (09:00→16:24)
[2017-08-04] MEDS: ASPIRIN EC 81 MG TABLET.DR PO SCH (09:00)
[2017-08-04] MEDS: NIFEdipine XL 60 MG TAB PO SCH (09:01)
[2017-08-04] MEDS: LEVOTHYROXINE SODIUM 100 MCG TABLET PO SCH (09:01)
[2017-08-04] MEDS: PROPRANOLOL HCL 10 MG TABLET PO SCH ×3 (09:43→16:23)
[2017-08-04 16:00] VITALS: BP 125/64
[2017-08-04 16:24] VITALS: BP 125/64
--- NOTE | 2017-08-04 19:00 | NUR ---
RN NOTES: PATIENT DISCHARGED HOME PER MD ORDERS. NO SIGNS OF DISTRESS NOTED. NONLABORED BREATHING ON ROOM AIR. PATIENT DENIES PAIN. PATIENT ALERT ORIENTED X4. IV LINE REMOVED. VS WNL. PATIENT STABLE. PATIENT AND FAMILY MEMBERS EDUCATED ON CURRENT LIST OF MEDICATIONS, WELL THE TOPIC OF HYPOGLYCEMIA. INFORMATION DISCUSSED IN LENGTH. SOME REINFORCEMENT WAS NEEDED. PRESCRIPTION GIVEN TO FAMILY MEMBERS, VERBALIZED UNDERSTANDING OF ATTAINING THE MEDICATIONS FOR THE PATIENT. SPOKE WITH THE PATIENT PRIVATELY AND EDUCATED HER ON CHECKING HER BLOOD SUGAR, BLOOD PRESSURE, HER CURRENT MEDICATIONS, WELL THE SIGNS AND SYMPTOMS OF HYPOGLYCEMIA AND WHAT TO DO. PATIENT VERBALIZED UNDERSTANDING. VALUABLES GIVEN TO PATIENT. PATIENT ACCOMPANIED TO CAR BY STAFF MEMBER. PATIENT LEFT WITH SON, MARISOL ROSENBERG, WELL GRANDSON. BENEFITS AND RISKS OF VACCINES EXPLAINED. PATIENT REFUSED STATING THAT SHE HAS RECEIVED THEM
== END 2017-08-04 19:20 | disposition home or self-care (01) | DRG 637 ==
LOC: ER 06:11 → TELE 08:48 → MED 08-02 09:22
PROVIDERS: ADMIT Legal Medicine; ATTEND Legal Medicine
DX: E11.649 Type 2 diabetes mellitus with hypoglycemia without coma (principal); E43 Unspecified severe protein-calorie malnutrition; G93.41 Metabolic encephalopathy; I12.9 Hypertensive chronic kidney disease with stage 1 through stage 4 chronic kidney disease, or unspecified chronic kidney disease; N18.3 Chronic kidney disease, stage 3 (moderate); I25.10 Atherosclerotic heart disease of native coronary artery without angina pectoris; E03.9 Hypothyroidism, unspecified; D63.8 Anemia in other chronic diseases classified elsewhere; E11.22 Type 2 diabetes mellitus with diabetic chronic kidney disease; E78.5 Hyperlipidemia, unspecified; F03.90 Unspecified dementia, unspecified severity, without behavioral disturbance, psychotic disturbance, mood disturbance, and anxiety; E88.09 Other disorders of plasma-protein metabolism, not elsewhere classified; M62.50 Muscle wasting and atrophy, not elsewhere classified, unspecified site; Z68.22 Body mass index [BMI] 22.0-22.9, adult; Z79.4 Long term (current) use of insulin; N28.9 Disorder of kidney and ureter, unspecified
CPT/HCPCS: 36415; 71010-TC; 80048-TC; 80076-TC; 81000-TC; 82140-TC; 82962-TC; 83605-TC; 83735-TC; 84100-TC; 84443-TC; 84484-TC; 85025-TC; 85730-TC; 87081-TC; 87086-TC; A4606; G0480; J1815; J3490; J7040; Z7610